=== PATIENT | male | born 1960 | race Caucasian/White ===

== ENCOUNTER → 2020-02-05 | Outpatient (CLI) | payer MEDICARE ==
[~2020-02-05] MED LIST: CATHETER FLUSH 10 ML SYR IV PRN; HOLD METFORMIN - RECEIVED CONTRAST 20 ML VIAL IV SCH; IOHEXOL 350 MG/ML 100 ML (OMNIPAQUE 350) VIAL IV ONE; NS 100 ML (IVPB) BAG IV ONE
--- NOTE | 2020-02-05 11:17 | Diagnostic Imaging Report ---
PROCEDURE: CT neck soft tissue with contrast. TECHNIQUE: Multiple contiguous axial images were obtained through the neck after the administration of contrast. Auto Exposure Controls were utilized during the CT exam to meet ALARA standards for radiation dose reduction. INDICATION: Lump in right side of throat. COMPARISON: There are no prior studies available for comparison. FINDINGS: By history, the patient has a palpable abnormality in the right neck. Just inferior to the mandibular ramus on the right, there is a fairly well-defined complex mass measuring 1.7 x 2.8 x 4.3 cm in maximum AP transverse and longitudinal dimensions. I suspect that this is a necrotic lymph node. Furthermore, there is also area of abnormal enhancement involving the base of the tongue on the right. This measures 2.5 x 2.7 x 1.9 cm. This area of abnormal enhancement appears to extend caudally to the level of the epiglottis. This mass and the necrotic suspected chronic lymph node on the right should be considered neoplastic until proven otherwise. There is no other mass or adenopathy involving the neck. The parotid and submandibular glands show no sign of an acute abnormality. The thyroid gland seems homogeneous and not enlarged. The lung apices are clear. The bone windows show no sign of a fracture or of a destructive lesion. The intracranial contents, where visualized, are unremarkable for an acute abnormality. IMPRESSION: 1. There is an enhancing mass along the base of the tongue on the right. This mass does extend caudally to the level of the epiglottis. There is also a sizable necrotic lymph node just inferior to the mandibular ramus on the right. These masses should be considered neoplastic until proven otherwise. An ENT consult would be recommended. 2. There is no other evidence for neoplastic disease. 3. There is no sign of an acute abnormality. Dictated by: Dictated on workstation # [id number]
== END ==
LOC: RAD FS 09:25
PROVIDERS: ATTEND Family Medicine
DX: R22.1 Localized swelling, mass and lump, neck (principal); R59.0 Localized enlarged lymph nodes
CPT/HCPCS: 70491

== ENCOUNTER 2020-02-23 05:43 | Outpatient (RCR) | payer MEDICARE ==
[~2020-02-23] VITALS: Ht 172 cm; Wt 96.6 kg
[2020-02-23] MEDS ORDERED: LISI1TAB46 PO (08:52)
[2020-02-23] MEDS ORDERED: CITA20TA9 PO (08:52)
[2020-02-23] MEDS ORDERED: TMSL.4C PO (08:52)
[2020-02-23] MEDS ORDERED: TERB250T16 PO (08:52)
[2020-02-23 08:56] VITALS: BP 154/99
[2020-02-23 09:28] LABS: BASOPHILS # (AUTO) 0.1 10^3/uL (0.0-0.1); BASOPHILS % (AUTO) 1 % (0-10); EOSINOPHILS # (AUTO) 0.1 10^3/uL (0.0-0.3); EOSINOPHILS % (AUTO) 3 % (0-10); HEMATOCRIT 42 % (40-54); HEMOGLOBIN 13.8 g/dL (13.3-17.7); LYMPHOCYTES # (AUTO) 1.8 10^3/uL (1.0-4.0); LYMPHOCYTES % (AUTO) 37 % (12-44); MEAN CORPUSCULAR HEMOGLOBIN 28 pg (25-34); MEAN CORPUSCULAR HGB CONC 33 g/dL (32-36); MEAN CORPUSCULAR VOLUME 85 fL (80-99); MEAN PLATELET VOLUME 11.9 fL (9.0-12.2); MONOCYTES # (AUTO) 0.4 10^3/uL (0.0-1.0); MONOCYTES % (AUTO) 9 % (0-12); NEUTROPHILS # (AUTO) 2.4 10^3/uL (1.8-7.8); NEUTROPHILS % (AUTO) 50 % (42-75); PLATELET COUNT 142 10^3/uL (130-400); WHITE BLOOD COUNT 4.8 10^3/uL (4.3-11.0)
[2020-02-23 09:41] LABS: BUN/CREATININE RATIO 9; CALCIUM 8.8 MG/DL (8.5-10.1); CARBON DIOXIDE 26 MMOL/L (21-32); CHLORIDE 105 MMOL/L (98-107); CREATININE SERUM 0.85 MG/DL (0.60-1.30); GFR ESTIMATED > 60; GLUCOSE 105 MG/DL (70-105); POTASSIUM 3.4 MMOL/L (3.6-5.0); SODIUM 137 MMOL/L (135-145)
== END 2020-02-23 10:44 | disposition home or self-care (01) ==
LOC: PREOP 05:43
PROVIDERS: ATTEND Otolaryngology Otolaryngology/Facial Plastic Surgery
DX: Z01.812 Encounter for preprocedural laboratory examination (principal); Z01.810 Encounter for preprocedural cardiovascular examination; R22.0 Localized swelling, mass and lump, head; Z20.828 Contact with and (suspected) exposure to other viral communicable diseases
CPT/HCPCS: 80048; 85025; 87081; U0002; 36415; 87635; 93005

== ENCOUNTER 2020-02-25 07:17 | Day surgery (SDC) | payer MEDICARE ==
[~2020-02-25] VITALS: Ht 172.7 cm; Wt 96.4 kg
[2020-02-25] VITALS (8 sets, daily range): BP systolic 116–149; BP diastolic 61–103
[~2020-02-25 07:17] MED LIST changes: -CATHETER FLUSH 10 ML SYR IV PRN; +CITA20TA9 PO; -HOLD METFORMIN - RECEIVED CONTRAST 20 ML VIAL IV SCH; -IOHEXOL 350 MG/ML 100 ML (OMNIPAQUE 350) VIAL IV ONE; +LISI1TAB46 PO; -NS 100 ML (IVPB) BAG IV ONE; +TERB250T16 PO; +TMSL.4C PO
[2020-02-25] MEDS: LACTATED RINGERS 1,000 ML IV PRN ×2 (07:33→10:52)
[2020-02-25] MEDS ORDERED: MIDAZOLAM 2 MG/2 ML (VERSED) VIAL IVP ONE (08:30)
--- NOTE | 2020-02-25 08:40 | Progress Note-Pre Operative ---
Pre-Operative Progress Note H&P Reviewed The H&P was reviewed, patient examined and no changes noted. Date Seen by Provider: Feb 25, 2020 Time Seen by Provider: 08:30 Date H&P Reviewed: Feb 25, 2020 Time H&P Reviewed: 08:30 Pre-Operative Diagnosis: Right Base of Tongue Mass with Neck adenopathy AVTAR DUTTON MD Feb 25, 2020 08:40
[2020-02-25] MEDS ORDERED: LIDOCAINE PF 2% 5 ML (XYLOCAINE) VIAL ONE (09:45)
[2020-02-25] MEDS ORDERED: SEVOFLURANE (ULTANE) 15 ML INHAL SOLN ONE ×3 (09:45→10:34)
[2020-02-25] MEDS ORDERED: proPOfol 200 MG/20 ML (DIPRIVAN) VIAL IV ONE (09:45)
[2020-02-25] MEDS ORDERED: ONDANSETRON 4 MG/2 ML (SDV) Z0FRAN ONE (09:45)
[2020-02-25] MEDS ORDERED: fentaNYL INJECTION 100 MCG/2 ML AMP ONE (09:45)
[2020-02-25] MEDS ORDERED: MIDAZOLAM 2 MG/2 ML (VERSED) VIAL ONE (09:45)
[2020-02-25] MEDS ORDERED: LIDOCAINE/EPI 1%-1:100,000 (XYLOCAINE) 50 ML ONE (10:03)
--- NOTE | 2020-02-25 10:19 | Progress Note-Post Operative ---
Post-Operative Progess Note Surgeon (s)/Terminal Worker (s) Surgeon AVTAR DUTTON MD Terminal Worker n/a Pre-Operative Diagnosis Right Base of Tongue Mass with Neck adenopathy Post-Operative Diagnosis same Post-Op Procedure Note Date of Procedure: Feb 25, 2020 Name of Procedure Performed: Direct Laryngosocpy with Biopsies of Right Aleksandr of Tongue Mass Description & Findings Description and Findings: n/a Anesthesia Type get Estimated Blood Loss minimal Packing none. Specimen(s) collected/removed right base of tongue biopsies AVTAR DUTTON MD Feb 25, 2020 10:19
[2020-02-25] MEDS ORDERED: HYDROcodone/APAP 5 MG/325 MG (LORTAB) TAB PO PRN (10:30)
[2020-02-25] MEDS ORDERED: ACETAMINOPHEN 325 MG TABLET PO PRN (10:30)
[2020-02-25] MEDS ORDERED: PROMETHAZINE INJ 25 MG/ML (PHENERGAN) AMP IV PRN (10:30)
[2020-02-25] MEDS ORDERED: ROCURONIUM 10 MG/ML 5 ML SYRINGE IV ONE (10:34)
[2020-02-25] MEDS ORDERED: SUCCINYLCHOLINE INJ 100 MG/5 ML SYR/VIAL ONE (10:34)
[2020-02-25] MEDS ORDERED: GLYCOPYRROLATE 0.2 MG/ML (ROBINUL) 2 ML VIAL ONE (10:38)
[2020-02-25] MEDS ORDERED: NEOSTIGMINE 3 MG/3 ML VIAL ONE (10:38)
--- NOTE | 2020-02-25 11:09 | Anesthesia-General Post-Op ---
General Patient Condition Mental Status/LOC: Same as Preop Cardiovascular: Satisfactory Nausea/Vomiting: Absent Respiratory: Satisfactory Pain: Controlled Complications: Absent Post Op Complications Complications None Follow Up Care/Instructions Patient Instructions None needed. Anesthesia/Patient Condition Patient Condition Patient is doing well, no complaints, stable vital signs, no apparent adverse anesthesia problems. No complications reported per nursing. RAYMOND JOSE CRNA Feb 25, 2020 11:09
[2020-02-25] MEDS ORDERED: VISCOUS XYLOCAINE PO (11:44)
[2020-02-25] MEDS ORDERED: HYDR15SO8 PO (11:44)
== END 2020-02-25 12:15 | disposition home or self-care (01) ==
LOC: SDC 07:17
PROVIDERS: ATTEND Otolaryngology Otolaryngology/Facial Plastic Surgery
DX: C01 Malignant neoplasm of base of tongue (principal); I10 Essential (primary) hypertension; J45.909 Unspecified asthma, uncomplicated; Z79.899 Other long term (current) drug therapy
CPT/HCPCS: 88305; 88331; 88341; 88342

== ENCOUNTER → 2020-03-01 | Outpatient (CLI) | payer MEDICARE ==
[~2020-03-01] MED LIST changes: +CATHETER FLUSH 10 ML SYR IV PRN; +HOLD METFORMIN - RECEIVED CONTRAST 20 ML VIAL IV SCH; +HYDR15SO8 PO; +IOHEXOL 350 MG/ML 100 ML (OMNIPAQUE 350) VIAL IV ONE; +NS 100 ML (IVPB) BAG IV ONE; +VISCOUS XYLOCAINE PO
--- NOTE | 2020-03-01 16:14 | Diagnostic Imaging Report ---
INDICATION: Right-sided base of tongue mass, initial staging. TECHNIQUE: The serum blood glucose level at the time of injection was 96 mg/dL. The patient was administered 14.9 mCi of F-18 FDG in the right hand and PET imaging was performed from the top of the skull to the mid thighs. A noncontrast CT was also performed for attenuation correction and anatomic correlation. COMPARISON: No prior PET/CT studies are available for comparison. Correlation is made with the recent CT soft tissue neck study from 02/05/2020. FINDINGS: There is symmetric activity throughout the brain. A hypermetabolic mass at the base of the tongue on the right side is noted with an SUV max of 11.7. This corresponds to the enhancing mass noted on the recent CT. There is also a hypermetabolic lymph node in the right jugulodigastric location measuring 2.7 cm. This demonstrates and SUV max of 13.8. No other hypermetabolic lymph nodes are identified. The left neck is unremarkable. The mediastinum and zohreh are unremarkable. No pulmonary parenchymal hypermetabolism is seen. The abdomen and pelvis demonstrate physiologic activity throughout the GI and tracts. IMPRESSION: Hypermetabolic base of tongue mass on the right side as well as hypermetabolic metastatic right neck lymph node, as described. No other suspicious regions of hypermetabolism are identified. Dictated by: Dictated on workstation # [id number]
--- NOTE | 2020-03-01 18:02 | Diagnostic Imaging Report ---
PROCEDURE: CT chest with contrast only. TECHNIQUE: Multiple contiguous axial images were obtained through the chest after administration of intravenous contrast. Auto Exposure Controls were utilized during the CT exam to meet ALARA standards for radiation dose reduction. INDICATION: Right base of tongue mass. COMPARISON: PET/CT from the same date. FINDINGS: No significant adenopathy within the chest. No aneurysmal dilatation of the thoracic aorta. Mild scattered vascular calcifications. The heart is within normal limits in size. A few small pericardial calcifications are present. No significant pericardial effusion. No pleural effusion. No pneumothorax. Mild secretions within the trachea. 0.3 cm left upper lobe pulmonary nodule, axial image 61. The lungs otherwise appear clear. Splenule is is present medial to the spleen. The visualized upper abdomen is otherwise unremarkable. Mild scattered osseous degenerative changes without acute osseous abnormality. IMPRESSION: No acute abnormality. 0.3 cm indeterminate left upper lobe pulmonary nodule. Given small size, this is below the size threshold of PET. Therefore, CT follow-up is indicated within the next 6 to 12 months. Dictated by: Dictated on workstation # [id number]
== END ==
LOC: RAD 12:00
PROVIDERS: ATTEND Otolaryngology Otolaryngology/Facial Plastic Surgery
DX: K14.8 Other diseases of tongue (principal); R91.1 Solitary pulmonary nodule
CPT/HCPCS: 71260; 78815; A9552

== ENCOUNTER 2020-03-31 05:44 | Outpatient (RCR) | payer MEDICARE ==
[~2020-03-31] VITALS: Ht 172.7 cm; Wt 96.4 kg
[~2020-03-31 05:44] MED LIST changes: -CATHETER FLUSH 10 ML SYR IV PRN; -HOLD METFORMIN - RECEIVED CONTRAST 20 ML VIAL IV SCH; -IOHEXOL 350 MG/ML 100 ML (OMNIPAQUE 350) VIAL IV ONE; -NS 100 ML (IVPB) BAG IV ONE
== END 2020-03-31 16:18 | disposition home or self-care (01) ==
LOC: PREOP 05:44
PROVIDERS: ATTEND Surgery
DX: Z01.818 Encounter for other preprocedural examination (principal)

== ENCOUNTER 2020-04-21 05:57 | Day surgery (SDC) | payer MEDICARE ==
[~2020-04-21] VITALS: Ht 172.7 cm; Wt 96.4 kg
[2020-04-21] VITALS (10 sets, daily range): BP systolic 138–150; BP diastolic 88–99
[2020-04-21] MEDS ORDERED: ceFAZolin 2 GM IV Premixed 50 ML IV ONE (06:15)
[2020-04-21] MEDS ORDERED: HEParin (CENTRAL IV FLUSH) 500 UNIT/5 ML SYR ONE (07:18)
[2020-04-21] MEDS ORDERED: 0.9% SODIUM CHLORIDE PF INJ 20 ML VIAL ONE (07:19)
[2020-04-21] MEDS ORDERED: LIDOCAINE/EPI 1%-1:100,000 (XYLOCAINE) 50 ML ONE (07:19)
[2020-04-21] MEDS ORDERED: SEVOFLURANE (ULTANE) 15 ML INHAL SOLN ONE ×5 (07:28→09:07)
[2020-04-21] MEDS ORDERED: ONDANSETRON 4 MG/2 ML (SDV) Z0FRAN ONE (07:28)
[2020-04-21] MEDS ORDERED: LIDOCAINE JELLY 2% 6 ML SYRINGE ONE (07:28)
[2020-04-21] MEDS ORDERED: fentaNYL INJECTION 100 MCG/2 ML AMP ONE (07:28)
[2020-04-21] MEDS ORDERED: proPOfol 200 MG/20 ML (DIPRIVAN) VIAL IV ONE ×2 (07:28→09:08)
[2020-04-21] MEDS ORDERED: MIDAZOLAM 2 MG/2 ML (VERSED) VIAL ONE (07:28)
[2020-04-21] MEDS ORDERED: ROCURONIUM 10 MG/ML 5 ML SYRINGE IV ONE (07:28)
[2020-04-21] MEDS ORDERED: LACTATED RINGERS 1,000 ML IV PRN (07:45)
--- NOTE | 2020-04-21 08:00 | Progress Note-Pre Operative ---
Pre-Operative Progress Note H&P Reviewed The H&P was reviewed, patient examined and no changes noted. Date Seen by Provider: Apr 21, 2020 Time Seen by Provider: 08:00 Date H&P Reviewed: Apr 21, 2020 Time H&P Reviewed: 08:00 Pre-Operative Diagnosis: squamous cell carcinoma tongue LILY DIETRICH DO Apr 21, 2020 08:00
[2020-04-21] MEDS ORDERED: HYDROmorphone 2 MG/ML VIAL (DILAUDID) ONE (08:41)
--- NOTE | 2020-04-21 09:04 | Diagnostic Imaging Report ---
INDICATION: Undergoing port placement. TECHNIQUE: Single intraprocedural images right upper chest FINDINGS/ IMPRESSION: The hospital radiology department provided fluoroscopic imaging in support of an interventional procedure performed by Dr Boone. A radiologist was not involved in the procedure. Please reference the operating provider's procedure note. Fluoroscopy Time: 35.6 seconds Single image procedure image demonstrates a right subclavian Lhojfw-g-Otop catheter present with tip over the paramediastinal region. Endotracheal tube is also present extending over the expected location of the trachea. Dictated by: Dictated on workstation # [id number]
[2020-04-21] MEDS ORDERED: PHENYLEPHRINE 100 MCG/ML 10 ML (ANESTHESIA) SYR ONE (09:08)
[2020-04-21] MEDS ORDERED: ONDANSETRON 4 MG/2 ML (SDV) Z0FRAN IVP PRN (09:30)
[2020-04-21] MEDS ORDERED: morphine INJ 10 MG/ML 1ML (SYR OR VIAL) IVP ONE (09:30)
[2020-04-21] MEDS ORDERED: MEPERIDINE (DEMEROL) INJ 50 MG/ML IVP ONE (09:30)
--- NOTE | 2020-04-21 09:30 | Anesthesia-General Post-Op ---
General Patient Condition Mental Status/LOC: Same as Preop Cardiovascular: Satisfactory Nausea/Vomiting: Absent Respiratory: Satisfactory Pain: Controlled Complications: Absent Post Op Complications Complications None Follow Up Care/Instructions Patient Instructions None needed. Anesthesia/Patient Condition Patient Condition Patient is doing well, no complaints, stable vital signs, no apparent adverse anesthesia problems. No complications reported per nursing. RONALD BRIDGES CRNA Apr 21, 2020 09:30
[2020-04-21] MEDS ORDERED: ACHD5005 PO (09:31)
--- NOTE | 2020-04-21 09:32 | Discharge Inst-Simple/Standard ---
Discharge Inst-Standard Discharge Medications New, Converted or Re-Newed RX: RX on Chart Patient Instructions/Follow Up Plan of Care/Instructions/FU: 2 weeks Paolo Activity as Tolerated: No Discharge Diet: Regular Diet LILY DIETRICH DO Apr 21, 2020 09:31
--- NOTE | 2020-04-21 09:33 | Discharge Inst-Simple/Standard ---
Discharge Inst-Standard Discharge Medications New, Converted or Re-Newed RX: RX on Chart Patient Instructions/Follow Up Plan of Care/Instructions/FU: 2 weeks Paolo Activity as Tolerated: No Discharge Diet: Regular Diet Other Inst to Patient Follow up Appt: Make appointment for 2 week. Instructions: No lifting greater than 10 pounds. No strenuous activity. May shower in 24 hours, no tub bath or soaking. Use incentive spirometer at home as directed. No Smoking Skin/Wound Care: You have special glue over your incision that will fall off on it's own. Rotate peg tube 2-3 times per day to change pressure that is on skin. Symptoms to Report: Appetite Changes, Extremity Discoloration, Numbness/Tingling, Swelling Increased, Bleeding Excessive, Eyesight Changes, Pain Increased, Urine Color Change, Constipation(Persistent), Fever over 101 degree F, Pain/Pressure in chest, Urinating Difficulty, Cough Up/Vomit Blood, Heart Beat Irreg/Pounding, Pain/Pressure in jaw, Vaginal Bleeding Increase, Cramps in feet or legs, Lightheadedness, Pain/Pressure in shoulder, Diarrhea(Persistent), Memory Changes Suddenly, Questions/Concerns, Weight gain consecutive days, Dizziness/Fainting, Nausea/Vomiting, Shortness of Breath, Weight gain over 2 pounds If questions or concerns contact your physician Or seek help at emergency department. LILY DIETRICH DO Apr 21, 2020 09:33
--- NOTE | 2020-04-21 09:40 | Progress Note-Post Operative ---
Post-Operative Progess Note Surgeon (s)/Grid Caster (s) Surgeon HOLLIE LOAIZA DO Grid Caster: Paolo Pre-Operative Diagnosis squamous cell carcinoma tongue Post-Operative Diagnosis same Procedure & Operative Findings Date of Procedure 04/21/20 Procedure Performed/Findings PEG tube placement Anesthesia Type GET Estimated Blood Loss Estimated blood loss (mL): scant Specimens/Packing Specimens Removed none HOLLIE LOAIZA DO Apr 21, 2020 09:40
--- NOTE | 2020-04-21 10:07 | Diagnostic Imaging Report ---
INDICATION: Catheter placement. Single AP view of the chest is obtained. There is no previous study for comparison. Heart size and pulmonary vascularity are within normal limits. There is no pneumothorax or consolidation. There is mild elevation of the right hemidiaphragm. Right anterior chest wall port is in place with catheter tip projecting over the mid superior vena cava. There is no pneumothorax or evidence of complication. IMPRESSION: No acute abnormality or complication related to right anterior chest wall port placement. Dictated by: Dictated on workstation # [id number]
--- NOTE | 2020-04-21 10:11 | Progress Note-Post Operative ---
Post-Operative Progess Note Surgeon (s)/Cardiac Exercise Specialist (s) Surgeon LILY DIETRICH DO Cardiac Exercise Specialist: Delman-Gastrostomy tube placement Pre-Operative Diagnosis squamous cell carcinoma tongue Post-Operative Diagnosis same Procedure & Operative Findings Date of Procedure 04/21/20 Procedure Performed/Findings right subclavian vein port placement, egd for Gastrostomy tube Anesthesia Type general Estimated Blood Loss Estimated blood loss (mL): scant Specimens/Packing Specimens Removed na LILY DIETRICH DO Apr 21, 2020 10:11
[2020-04-21] MEDS ORDERED: LABETALOL HCL 20 MG/4 ML VIAL ONE (10:29)
--- NOTE | 2020-04-21 12:41 | OPERATIVE REPORT ---
DATE OF SERVICE: 04/21/2020 PREOPERATIVE DIAGNOSIS: Squamous cell carcinoma of the tongue. POSTOPERATIVE DIAGNOSIS: Squamous cell carcinoma of the tongue. PROCEDURE: Right subclavian vein port placement and esophagogastroduodenoscopy for gastrostomy tube placement. SURGEON: Lily Boone DO GAMBLING FLOOR SUPERVISOR: Dr. Rudd. Please see his dictation for gastrostomy tube placement. ESTIMATED BLOOD LOSS: Scant. COMPLICATIONS: None. INDICATIONS: The patient is a 60-year-old male with squamous cell carcinoma, needing a port and gastrostomy tube. The patient understands risks and benefits of procedure and wanted to proceed with procedure. Consent was signed in the chart. DESCRIPTION OF PROCEDURE: The patient was taken to the operating suite, was prepped and draped in usual sterile fashion for a right subclavian port placement. A timeout was performed. Using micro access needle, the right subclavian vein was accessed, dark nonpulsatile blood was withdrawn. Micro access wire was inserted and the needle was removed. Fluoroscopy assured proper placement. An 11 blade scalpel was used to make a small skin incision and dilator was advanced over the wire and the wire was removed. The normal port wire was inserted and fluoroscopy assured proper placement. The dilator sheath was then removed. The wire was secured. A pocket was created over the right chest. A dilator sheath was then advanced over the wire under fluoroscopy and the wire was removed. The Groshong catheter was inserted through the sheath and the sheath was then removed. The Groshong wire was removed. The catheter was cut to length using fluoroscopy, it was attached to the port and placed within the pocket. Port was then accessed without difficulty, joaquim blood without difficulty and flushed with saline and then with heparin. Subcutaneous tissues were then reapproximated using 3-0 Vicryl. Skin was then closed using Skin Affix. EGD was then performed for gastrostomy tube placement. The scope was inserted in mouth, down the esophagus, stomach and into the duodenum without difficulty. There were no polyps, masses or ulcerations within the duodenum. Scope was slowly retracted back into the stomach where it was further insufflated. Some slight changes of reactive gastropathy was present. The ballottable portion of the stomach was able to be visualized. Once the Angiocath needle came in, the catheter was then snared. The wire was inserted and the wire was then snared and brought out through the mouth. The gastrostomy tube was then secured to the wire and then brought out through the skin incision. The scope was then reinserted in mouth, down the esophagus into the stomach demonstrating the gastrostomy tube in good position. Please see Dr. Rudd's dictation for his portion of the procedure. Scope was then slowly retracted back until completely removed. The patient tolerated procedure well without any complications, taken to recovery room in stable condition. Chest x-ray pending. Job ID: [id number] DocumentID: [id number] Dictated Date: 04/21/2020 10:15:13 Police Liaison Officer Date: 04/21/2020 12:40:31 Dictated By: LILY BOONE DO
--- NOTE | 2020-04-21 13:14 | OPERATIVE REPORT ---
DATE OF SERVICE: PREOPERATIVE DIAGNOSIS: Squamous cell cancer of the tongue. POSTOPERATIVE DIAGNOSIS: Squamous cell cancer of the tongue. PROCEDURE: PEG tube placement. SURGEON: Mario Rudd DO CLEAN ROOM OPERATOR: Los Boone DO. ANESTHESIA: General endotracheal tube. SPECIMENS: None. BLOOD LOSS: None. FLUIDS: Per anesthesia. POSTOPERATIVE CONDITION: Stable. INDICATION FOR PROCEDURE: The patient is a 60-year-old male who has a history of squamous cell carcinoma of tongue and needs a PEG because he will get chemotherapy radiation and he will not be able to eat. FINDINGS: The patient had a PEG tube placed without difficulty. PROCEDURE NOTE: After informed consent was obtained, the patient was already in the OR, had a port placed by Dr. Boone. We then elected to do the PEG. Dr. Boone did the EGD portion. Once he was in and dilated the stomach, I then palpated the stomach, could see the me pushing in on the scope. At this point, then sterilely prepped and draped this area and then infiltrated the left upper quadrant with local lidocaine, made a small stab incision with #11 blade and then advanced the finder needle in an upward little bit and then able to wash it come into the stomach. Once it was in the stomach, it was then grasped with a lasso, removed this needle and then through the catheter, placed another wire, able to grasp this wire with a needle and then Dr. Boone pulled this out. I passed him the PEG tube and then I attached it to the lasso and I pulled this in through this mouth, down the esophagus into the stomach, sat nicely at the skin. It was about 6 to 7 cm, able to spin, did not look it was pulling. At this point, then placed some Povidone gel around this and then placed the locking mechanism and the closure for the PEG tube, pushed these down, put a small 2 x 2 drain dressing and then this was held in place with the locking mechanism, clamped tube, cut off the distal portion of the tube and then attached the opening to be able to give the patient feedings through this tube. Area was then cleaned and dried, dressing placed. The patient tolerated the procedure. Sponge, instrument and needle count correct at the end of the case. Job ID: [id number] DocumentID: [id number] Dictated Date: 04/21/2020 09:43:25 [place] Administrator Date: 04/21/2020 12:29:48 Dictated By: DO TEVIN GARNETT
== END 2020-04-21 11:30 | disposition home or self-care (01) ==
LOC: SDC 05:57
PROVIDERS: ATTEND Surgery
DX: C01 Malignant neoplasm of base of tongue (principal); J44.9 Chronic obstructive pulmonary disease, unspecified; I87.2 Venous insufficiency (chronic) (peripheral); I10 Essential (primary) hypertension; F32.9 Major depressive disorder, single episode, unspecified; M06.9 Rheumatoid arthritis, unspecified; F41.9 Anxiety disorder, unspecified; Z79.899 Other long term (current) drug therapy; Z79.891 Long term (current) use of opiate analgesic; Z87.891 Personal history of nicotine dependence; Z98.890 Other specified postprocedural states; E66.9 Obesity, unspecified; Z68.32 Body mass index [BMI] 32.0-32.9, adult; Z80.8 Family history of malignant neoplasm of other organs or systems
CPT/HCPCS: 36561; 43246; 71045; 76000; 87081; C1788

== ENCOUNTER → 2020-04-26 | Outpatient (CLI) | payer MEDICARE ==
[~2020-04-26] MED LIST changes: +ACHD5005 PO; +CATHETER FLUSH 10 ML SYR IV PRN; +HOLD METFORMIN - RECEIVED CONTRAST 20 ML VIAL IV SCH; +IOHEXOL 350 MG/ML 100 ML (OMNIPAQUE 350) VIAL IV ONE; +NS 100 ML (IVPB) BAG IV ONE
--- NOTE | 2020-04-26 12:59 | Diagnostic Imaging Report ---
PROCEDURE: CT abdomen with contrast only. TECHNIQUE: Multiple contiguous axial images were obtained through the abdomen after the administration of intravenous contrast. Auto Exposure Controls were utilized during the CT exam to meet ALARA standards for radiation dose reduction. A mixture of Gastrografin and water was also introduced to the patient's gastrostomy tube. INDICATION: Malfunctioning PEG tube The PET/CT exam performed on 03/01/2020 failed to show any abnormality of the upper abdomen. Reportedly the patient has had a gastrostomy tube inserted on 04/22/20. On this study the gastrostomy tube appears to be well-positioned with bulb just beyond the gastric wall and within the lumen of the stomach. The stomach itself however is filled with multiple low density defects. These defects range in size from a few millimeters to 2.5 cm. It is possible these could be related to particulate matter. Small hematomas would be unusual but should also be considered. It would be unlikely that these are neoplastic in nature either leiomyomas or gastric carcinomas. However, there was generalized hypermetabolic activity associated with the stomach on the recent PET/CT exam. The contrast within the stomach does extend into the small bowel and there is no evidence for a gastric outlet obstruction. There is no acute abnormality of the abdomen or pelvis noted otherwise. The lung bases remain clear. The bone windows are unremarkable for a fracture or for a destructive lesion. IMPRESSION: 1. There is no acute abnormality of the abdomen or pelvis noted otherwise.. In the interval since the recent PET/CT exam of 03/01/2020 a gastrostomy tube has been inserted. The tube seems to be in good position. However there are numerous defects amidst the oral contrast within the stomach. These defects are of uncertain etiology 2. There is no acute abnormality of the abdomen and pelvis noted otherwise. 3. These results were discussed with Dr. Mario Rudd. Dictated by: Dictated on workstation # [id number]
== END ==
LOC: RAD 10:12
PROVIDERS: ATTEND Surgery
DX: K94.23 Gastrostomy malfunction (principal)
CPT/HCPCS: 74160

== ENCOUNTER → 2020-05-23 | Outpatient (CLI) | payer MEDICARE ==
[~2020-05-23] MED LIST changes: -CATHETER FLUSH 10 ML SYR IV PRN; -HOLD METFORMIN - RECEIVED CONTRAST 20 ML VIAL IV SCH; -IOHEXOL 350 MG/ML 100 ML (OMNIPAQUE 350) VIAL IV ONE; -NS 100 ML (IVPB) BAG IV ONE
--- NOTE | 2020-05-23 12:04 | Diagnostic Imaging Report ---
INDICATION: WHEEZING COMPARISON: 04/21/2020 FINDINGS: Frontal and lateral views of the chest demonstrate normal heart size and pulmonary vascularity. The lungs are clear. There are no signs of infiltrate, pleural effusions or pneumothoraces. The visualized osseous structures show no acute abnormalities. Central tip of the right subclavian Port-A-Cath is now identified extending into the lower right neck, presumably within the right internal jugular vein. IMPRESSION: 1. No acute process. No signs of infiltrates, effusions or pneumothoraces. 2. Right subclavian Port-A-Cath central tip now terminates within the right internal jugular vein. Dictated by: Dictated on workstation # [id number]
== END ==
LOC: RAD 10:58
PROVIDERS: ATTEND Nurse Practitioner Adult Health
DX: R06.2 Wheezing (principal)
CPT/HCPCS: 71046

== ENCOUNTER 2020-05-31 10:55 | Day surgery (SDC) | payer MEDICARE, OTHER ==
[~2020-05-31] VITALS: Ht 172 cm; Wt 92.0 kg
[2020-05-31] VITALS (9 sets, daily range): BP systolic 132–159; BP diastolic 83–97
[~2020-05-31 10:55] MED LIST changes: +HEParin (CATH LAB) 2,000 ML IV ONE; +LIDOCAINE 1% INJ 20 ML 20 ML VIAL ONE; +NS IV 1000 ML 1,000 ML ONE
[2020-05-31] MEDS ORDERED: NS IV 1000 ML 1,000 ML IV SCH ×2 (11:00→16:30)
[2020-05-31] MEDS ORDERED: HYDR118S10 PO (11:23)
[2020-05-31] MEDS ORDERED: MAGIC MOUTHWASH PO (11:23)
--- NOTE | 2020-05-31 13:42 | Cardiology History & Physical ---
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 Port-a-cath and PEG tube were placed by Dr. Boone on 04/21/20. Pt has been seeing Dr. Lamb for radiation and cisplatin chemotherapy, last chemotherapy treatment was yesterday and last radiation was this morning. He has hepatitis C and HTN, for which he takes Lisinopril 20 mg-HCTZ 12.5 mg, but is not on any blood thinners. Prior hx of chewing tobacco and 32 pack/yr smoker, but quit 10 years ago. Previously drank 5 beers per day, but has not had a drink since starting his cancer treatment. Pt denies any complaints at this time. PMH-Cardiology Immunizations Up To Date Date of Influenza Vaccine: Feb 02, 2020 Seasonal Allergies Seasonal Allergies: Yes (MILD) Surgeries Yes (BACK-LUMBAR, tongue bx, PEG tube placement, port-a-cath placement) Respiratory Yes (ASTHMA CHILD) Cardiovascular Yes Hypertension Neurological Yes Headaches /Migraines Reproductive System Sexually Transmitted Disease: No HIV/AIDS: No Genitourinary Yes Prostate Problems Gastrointestinal Yes (HX HEPATITIS B) Hepatitis (Hepatitis C virus) Musculoskeletal Yes (HANDS) Arthritis, Chronic Back Pain Endocrine No HEENT Yes (GLASSES) Loss of Vision: Denies Hearing Impairment: Denies Cancer Yes (stage III SCC of tongue) Type of Treatment: Chemotherapy, Radiation Psychosocial Yes Anxiety Integumentary Yes (VERY DRY SKIN) Blood Transfusions No Adverse Rxn to Transfusion: No (HAS HAD BLOOD WITH NO REACTION) Social History Patient Social History Marrital Status: Employed/Student: employed Smoking: Former smoker (chewed tobacco and smoked for 32 pack/yrs; quit 10 years ago) Alcohol Use?: Yes (5 beers per day until starting treatment 1 month ago) Family Hx Significant Family History: Heart Disease (on mother's side) Other Noncontributory to his current condition ROS-Cardiology Review of Systems General: No Chills, No Night Sweats, No Fatigue, No Malaise, No Appetite, No Other Pulmonary: No Dyspnea, No Pleuritic Chest Pain Cardiovascular: No: Chest Pain, Palpitations, Paroxysmal Noc. Dyspnea, Edema, Lt Headedness Gastrointestinal: No: Nausea, Vomiting, Abdominal Pain, Diarrhea, Constipation, Melena, Hematochezia, Other Home Medications & Allergies Allergies: Coded Allergies: No Known Drug Allergies (Unverified , 02/23/20) Home Medication List Reviewed: Yes Exam-Cardiology Vital Signs Vital Signs Date Time Temp Pulse Resp B/P (MAP) Pulse Ox O2 Delivery O2 Flow Rate FiO2 05/31/20 11:11 36.0 92 16 159/97 (117) 95 Room Air Exam General Appearance: Alert, Oriented X3, Cooperative, No Acute Distress HEENT: Atraumatic, PERRLA, EOMI, Mucous Memb Moist/Venturia, Other (edentulous; port-a-cath in place on right) Respiratory: Clear to Auscultation, Normal Air Movement Cardiovascular: Regular Rate, Normal S1, Normal S2, No Murmurs Abdominal: Other (PEG tube in place) Extremities: No Cyanosis, No Edema, Normal Pulses, No Tenderness/Swelling Skin: No Rashes, No Significant Lesion Neuro: Normal Speech Psych/Mental Status: Mental Status NL, Mood NL Results Labs Labs Laboratory Tests 05/31/20 14:31: White Blood Count 1.8L, Red Blood Count 3.39L, Hemoglobin 9.4L, Hematocrit 30L, Mean Corpuscular Volume 87, Mean Corpuscular Hemoglobin 28, Mean Corpuscular Hemoglobin Concent 32, Red Cell Distribution Width 15.7H, Platelet Count 74L, Mean Platelet Volume 12.3H, Prothrombin Time 14.3, INR Comment 1.1, Activated Partial Thromboplast Time 25, Sodium Level 138, Potassium Level 4.8, Chloride Level 110H, Carbon Dioxide Level 23, Anion Gap 5, Blood Urea Nitrogen 13, Creatinine 0.62, Estimat Glomerular Filtration Rate > 60, BUN/Creatinine Ratio 21, Glucose Level 77, Calcium Level 8.0L, Corrected Calcium 9.2, Total Bilirubin 0.4, Aspartate Amino Transf (AST/SGOT) 45H, Alanine Aminotransferase (ALT/SGPT) 32, Alkaline Phosphatase 69, Total Protein 5.9L, Albumin 2.5L A/P-Cardiology Admission Diagnosis Stage III SCC of tongue HTN hepatitis C port-a-cath malplacement Admission Status: Observation Assessment/Plan Stage III SCC of tongue, treated with cisplatin and radiation by Dr. Lamb HTN, maintained on Lisinopril 20 mg-HCTZ 12.5 mg hepatitis C, untreated, plans to seek treatment after cancer treatment Right subclavian port-a-cath malplacement, plan to reposition into SVC This is Dr. Parekh, have seen and evaluated the patient with the medical student, performed physical examination, agree with the current note Patient is scheduled for repositioning of Port-A-Cath in the right subclavian vein ZEUS STEELE MED STUDENT May 31, 2020 1:42 pm ROHAN PAREKH MD May 31, 2020 2:22 pm
--- NOTE | 2020-05-31 14:16 | Cardiac Procedure Note-CS/ASA ---
Pre-Procedure Note Pre-Op Procedure Note H&P Reviewed The H&P was reviewed, patient examined and no changes noted. Date H&P Reviewed: May 31, 2020 Time H&P Reviewed: 14:16 Conscious Sedation Pre-Proced Time 14:16 ASA Score 3 For ASA 3 and 4: Consider anesthesia and medical clearance. Also, for patients with a history of failed moderate sedation consider anesthesia. Airway Lungs Heart ASA score ASA 1: a normal healthy patient ASA 2: a patient with a mild systemic disease (mid diabetes, controlled hypertension, obesity x ASA 3: a patient with a severe systemic disease that limits activity (angina, COPD, prior Myocardial infarction) ASA 4: a patient with an incapacitating disease that is a constant threat to life (CHF, renal failure) ASA 5: a moribund patient not expected to survive 24 hrs. (ruptured aneurysm) ASA 6: a declared brain- patient whose organs are being harvested. For emergent operations, add the letter E after the classification Mallampati Classification Grade 3 Sedation Plan Analgesia, Amnesia, Plan communicated to team members, Discussed options with patient/fam, Discussed risks with patient/fam The patient is an appropriate candidate to undergo the planned procedure, sedation, and anesthesia. The patient immediately re-assessed prior to indication. ROHAN GAUTHIER MD May 31, 2020 14:16
[2020-05-31 14:38] LABS: HEMOGLOBIN 9.4 g/dL (13.3-17.7); MEAN PLATELET VOLUME 12.3 fL (9.0-12.2); WHITE BLOOD COUNT 1.8 10^3/uL (4.3-11.0)
[2020-05-31 14:49] LABS: INR 1.1 (0.8-1.4); PROTHROMBIN TIME PATIENT 14.3 SEC (12.2-14.7)
[2020-05-31 14:56] LABS: ALANINE AMINOTRANSFERASE 32 U/L (0-55); ALBUMIN 2.5 GM/DL (3.2-4.5); ALKALINE PHOSPHATASE 69 U/L (40-136); BILIRUBIN,TOTAL 0.4 MG/DL (0.1-1.0); BUN/CREATININE RATIO 21; CARBON DIOXIDE 23 MMOL/L (21-32); CHLORIDE 110 MMOL/L (98-107); CREATININE SERUM 0.62 MG/DL (0.60-1.30); GFR ESTIMATED > 60; GLUCOSE 77 MG/DL (70-105); POTASSIUM 4.8 MMOL/L (3.6-5.0); SODIUM 138 MMOL/L (135-145); TOTAL PROTEIN 5.9 GM/DL (6.4-8.2)
[2020-05-31] MEDS ORDERED: fentaNYL INJ 100 MCG/2 ML AMP ONE (15:30)
[2020-05-31] MEDS ORDERED: MIDAZOLAM 5 MG/5 ML (VERSED) VIAL ONE (15:30)
--- NOTE | 2020-05-31 16:19 | Cardiology Post Procedure Note ---
Post-Procedure Note Physician (s)/Sports Announcer (s) Physician ROHAN GAUTHIER MD Pre-Procedure Diagnosis Pre-Procedure Diagnosis: Malpositioning of right subclavian port Post-Procedure Note Procedure Start Date: May 31, 2020 Name of Procedure: Fluoroscopy Right venous central line placement Repositioning of the port Findings/Procedure Note Procedure note 60 years old gentleman with history of squamous cell carcinoma, has right subclavian port, it was reported to be malpositioned and moved migrated upward in the carotid vein. I was called for evaluation. Patient was brought to the cardiac catheterization laboratory, conscious sedation achieved using Versed and fentanyl. Local anesthesia applied. 6 German sheath was placed in the right femoral vein then using fluoroscopy I advanced FIR diagnostic catheter over a J-wire up through the inferior vena cava to the right atrium and then to the superior vena cava and the right subclavian vein after multiple manipulation I was able to wrap the Shahnaz right catheter around the port and pulled down I was able to retracted slowly then after multiple attempts I was able to pull it down to the superior vena cava. Sheath was removed and manual pressure applied no complication noted Conclusion Successful repositioning of port to the superior vena cava Central line placement in the right femoral vein then removal at the end of the procedure Fluoroscopy of the chest and neck Anesthesia Type: Conscious Sedation Estimated blood loss (mL): 15 ml Contrast Amount: 0 ml Post-Procedure Diagnosis Post-operative diagnosis: Squamous cell carcinoma Hepatitis C ROHAN GAUTHIER MD May 31, 2020 4:19 pm
[2020-05-31] MEDS ORDERED: PATIENT MAY USE OWN MEDS, ALL PO SCH (16:30)
== END 2020-05-31 18:35 | disposition home or self-care (01) ==
LOC: CATH 10:55
PROVIDERS: ATTEND Internal Medicine Cardiovascular Disease
DX: T82.42XA Displacement of vascular dialysis catheter, initial encounter (principal); C02.9 Malignant neoplasm of tongue, unspecified; B19.20 Unspecified viral hepatitis C without hepatic coma; I10 Essential (primary) hypertension; J45.909 Unspecified asthma, uncomplicated; G43.909 Migraine, unspecified, not intractable, without status migrainosus; G89.29 Other chronic pain; M54.9 Dorsalgia, unspecified; F41.9 Anxiety disorder, unspecified; M19.90 Unspecified osteoarthritis, unspecified site; Z79.899 Other long term (current) drug therapy; Z92.21 Personal history of antineoplastic chemotherapy; Z92.3 Personal history of irradiation; Z87.891 Personal history of nicotine dependence
CPT/HCPCS: 36597; 80053; 85027; 85610; 85730; C1894; 36415

== ENCOUNTER 2020-06-10 08:43 | Outpatient (RCR) | payer MEDICARE, OTHER ==
[2020-03-14 09:57] LABS: BASOPHILS # (AUTO) 0.1 10^3/uL (0.0-0.1); BASOPHILS % (AUTO) 1 % (0-10); EOSINOPHILS # (AUTO) 0.2 10^3/uL (0.0-0.3); EOSINOPHILS % (AUTO) 4 % (0-10); HEMATOCRIT 45 % (40-54); HEMOGLOBIN 14.8 g/dL (13.3-17.7); LYMPHOCYTES # (AUTO) 1.6 10^3/uL (1.0-4.0); LYMPHOCYTES % (AUTO) 39 % (12-44); MEAN CORPUSCULAR HEMOGLOBIN 28 pg (25-34); MEAN CORPUSCULAR HGB CONC 33 g/dL (32-36); MEAN CORPUSCULAR VOLUME 87 fL (80-99); MEAN PLATELET VOLUME 11.4 fL (9.0-12.2); MONOCYTES # (AUTO) 0.4 10^3/uL (0.0-1.0); MONOCYTES % (AUTO) 11 % (0-12); NEUTROPHILS # (AUTO) 1.8 10^3/uL (1.8-7.8); NEUTROPHILS % (AUTO) 44 % (42-75); PLATELET COUNT 146 10^3/uL (130-400); WHITE BLOOD COUNT 4.2 10^3/uL (4.3-11.0)
[2020-03-14 10:18] LABS: ALANINE AMINOTRANSFERASE 52 U/L (0-55); ALBUMIN 3.5 GM/DL (3.2-4.5); ALKALINE PHOSPHATASE 56 U/L (40-136); BILIRUBIN,TOTAL 0.5 MG/DL (0.1-1.0); BUN/CREATININE RATIO 9; CALCIUM 9.1 MG/DL (8.5-10.1); CARBON DIOXIDE 20 MMOL/L (21-32); CHLORIDE 107 MMOL/L (98-107); CREATININE SERUM 0.85 MG/DL (0.60-1.30); GFR ESTIMATED > 60; GLUCOSE 94 MG/DL (70-105); POTASSIUM 3.7 MMOL/L (3.6-5.0); SODIUM 137 MMOL/L (135-145); TOTAL PROTEIN 8.1 GM/DL (6.4-8.2)
[2020-04-25 13:03] LABS: MEAN CORPUSCULAR HEMOGLOBIN 28 pg (25-34); MEAN CORPUSCULAR HGB CONC 32 g/dL (32-36)
[2020-04-25 13:05] LABS: BASOPHILS % (AUTO) 1 % (0-10); EOSINOPHILS % (AUTO) 1 % (0-10); HEMATOCRIT 41 % (40-54); HEMOGLOBIN 13.3 g/dL (13.3-17.7); LYMPHOCYTES # (AUTO) 1.5 10^3/uL (1.0-4.0); LYMPHOCYTES % (AUTO) 17 % (12-44); MEAN CORPUSCULAR VOLUME 87 fL (80-99); MEAN PLATELET VOLUME 11.7 fL (9.0-12.2); MONOCYTES % (AUTO) 11 % (0-12); NEUTROPHILS # (AUTO) 6.2 10^3/uL (1.8-7.8); NEUTROPHILS % (AUTO) 71 % (42-75); PLATELET COUNT 109 10^3/uL (130-400); WHITE BLOOD COUNT 8.7 10^3/uL (4.3-11.0)
[2020-04-25 13:17] LABS: ALANINE AMINOTRANSFERASE 31 U/L (0-55); ALBUMIN 3.2 GM/DL (3.2-4.5); ALKALINE PHOSPHATASE 49 U/L (40-136); BILIRUBIN,TOTAL 0.9 MG/DL (0.1-1.0); BUN/CREATININE RATIO 13; CALCIUM 8.6 MG/DL (8.5-10.1); CARBON DIOXIDE 23 MMOL/L (21-32); CHLORIDE 104 MMOL/L (98-107); CREATININE SERUM 0.77 MG/DL (0.60-1.30); GFR ESTIMATED > 60; GLUCOSE 94 MG/DL (70-105); MAGNESIUM 1.9 MG/DL (1.6-2.4); SODIUM 136 MMOL/L (135-145); TOTAL PROTEIN 7.9 GM/DL (6.4-8.2)
[2020-05-02 09:38] LABS: EOSINOPHILS # (AUTO) 0.1 10^3/uL (0.0-0.3); MEAN CORPUSCULAR HEMOGLOBIN 28 pg (25-34); NEUTROPHILS % (AUTO) 63 % (42-75)
[2020-05-02 09:40] LABS: BASOPHILS % (AUTO) 1 % (0-10); EOSINOPHILS % (AUTO) 2 % (0-10); HEMATOCRIT 40 % (40-54); LYMPHOCYTES # (AUTO) 0.9 10^3/uL (1.0-4.0); LYMPHOCYTES % (AUTO) 19 % (12-44); MEAN CORPUSCULAR HGB CONC 33 g/dL (32-36); MEAN CORPUSCULAR VOLUME 86 fL (80-99); MEAN PLATELET VOLUME 11.4 fL (9.0-12.2); MONOCYTES # (AUTO) 0.7 10^3/uL (0.0-1.0); MONOCYTES % (AUTO) 15 % (0-12); PLATELET COUNT 132 10^3/uL (130-400); WHITE BLOOD COUNT 4.7 10^3/uL (4.3-11.0)
[2020-05-02 09:54] LABS: BUN/CREATININE RATIO 11; CALCIUM 8.7 MG/DL (8.5-10.1); CARBON DIOXIDE 23 MMOL/L (21-32); CHLORIDE 101 MMOL/L (98-107); CREATININE SERUM 0.73 MG/DL (0.60-1.30); GFR ESTIMATED > 60; GLUCOSE 87 MG/DL (70-105); POTASSIUM 3.7 MMOL/L (3.6-5.0); SODIUM 135 MMOL/L (135-145)
[2020-05-09 09:15] LABS: BASOPHILS # (AUTO) 0.1 10^3/uL (0.0-0.1); BASOPHILS % (AUTO) 2 % (0-10); EOSINOPHILS # (AUTO) 0.1 10^3/uL (0.0-0.3); EOSINOPHILS % (AUTO) 2 % (0-10); HEMATOCRIT 41 % (40-54); HEMOGLOBIN 13.1 g/dL (13.3-17.7); LYMPHOCYTES # (AUTO) 0.7 10^3/uL (1.0-4.0); LYMPHOCYTES % (AUTO) 22 % (12-44); MEAN CORPUSCULAR HEMOGLOBIN 27 pg (25-34); MEAN CORPUSCULAR HGB CONC 32 g/dL (32-36); MEAN CORPUSCULAR VOLUME 86 fL (80-99); MEAN PLATELET VOLUME 11.2 fL (9.0-12.2); MONOCYTES # (AUTO) 0.4 10^3/uL (0.0-1.0); MONOCYTES % (AUTO) 12 % (0-12); NEUTROPHILS # (AUTO) 2.1 10^3/uL (1.8-7.8); NEUTROPHILS % (AUTO) 62 % (42-75); PLATELET COUNT 128 10^3/uL (130-400); WHITE BLOOD COUNT 3.3 10^3/uL (4.3-11.0)
[2020-05-09 09:27] LABS: ALBUMIN 3.1 GM/DL (3.2-4.5); CHLORIDE 103 MMOL/L (98-107); POTASSIUM 4.2 MMOL/L (3.6-5.0); SODIUM 136 MMOL/L (135-145)
[2020-05-09 09:29] LABS: CALCIUM 8.8 MG/DL (8.5-10.1)
[2020-05-09 09:30] LABS: GLUCOSE 93 MG/DL (70-105); TOTAL PROTEIN 7.4 GM/DL (6.4-8.2)
[2020-05-09 09:31] LABS: CARBON DIOXIDE 26 MMOL/L (21-32)
[2020-05-09 09:32] LABS: BILIRUBIN,TOTAL 0.6 MG/DL (0.1-1.0)
[2020-05-09 09:33] LABS: ALKALINE PHOSPHATASE 64 U/L (40-136); CREATININE SERUM 0.74 MG/DL (0.60-1.30); GFR ESTIMATED > 60
[2020-05-09 09:35] LABS: BUN/CREATININE RATIO 12
[2020-05-09 09:36] LABS: ALANINE AMINOTRANSFERASE 55 U/L (0-55); MAGNESIUM 1.9 MG/DL (1.6-2.4)
[2020-05-16 09:05] LABS: BASOPHILS % (AUTO) 1 % (0-10); EOSINOPHILS % (AUTO) 2 % (0-10); HEMATOCRIT 36 % (40-54); HEMOGLOBIN 11.6 g/dL (13.3-17.7); LYMPHOCYTES # (AUTO) 0.5 10^3/uL (1.0-4.0); LYMPHOCYTES % (AUTO) 25 % (12-44); MEAN CORPUSCULAR HEMOGLOBIN 28 pg (25-34); MEAN CORPUSCULAR HGB CONC 32 g/dL (32-36); MEAN CORPUSCULAR VOLUME 86 fL (80-99); MEAN PLATELET VOLUME 11.5 fL (9.0-12.2); MONOCYTES # (AUTO) 0.4 10^3/uL (0.0-1.0); MONOCYTES % (AUTO) 22 % (0-12); NEUTROPHILS # (AUTO) 0.9 10^3/uL (1.8-7.8); NEUTROPHILS % (AUTO) 50 % (42-75); PLATELET COUNT 65 10^3/uL (130-400); WHITE BLOOD COUNT 1.8 10^3/uL (4.3-11.0)
[2020-05-16 09:23] LABS: BUN/CREATININE RATIO 11; CALCIUM 8.4 MG/DL (8.5-10.1); CARBON DIOXIDE 26 MMOL/L (21-32); CHLORIDE 108 MMOL/L (98-107); CREATININE SERUM 0.73 MG/DL (0.60-1.30); GFR ESTIMATED > 60; GLUCOSE 84 MG/DL (70-105); MAGNESIUM 4.7 MG/DL (1.6-2.4); POTASSIUM 4.2 MMOL/L (3.6-5.0); SODIUM 139 MMOL/L (135-145)
[2020-05-23 09:57] LABS: BASOPHILS % (AUTO) 1 % (0-10); EOSINOPHILS % (AUTO) 2 % (0-10); HEMATOCRIT 35 % (40-54); HEMOGLOBIN 11.2 g/dL (13.3-17.7); LYMPHOCYTES # (AUTO) 0.3 10^3/uL (1.0-4.0); LYMPHOCYTES % (AUTO) 13 % (12-44); MEAN CORPUSCULAR HEMOGLOBIN 28 pg (25-34); MEAN CORPUSCULAR HGB CONC 32 g/dL (32-36); MEAN CORPUSCULAR VOLUME 86 fL (80-99); MEAN PLATELET VOLUME 12.3 fL (9.0-12.2); MONOCYTES # (AUTO) 0.4 10^3/uL (0.0-1.0); MONOCYTES % (AUTO) 17 % (0-12); NEUTROPHILS # (AUTO) 1.5 10^3/uL (1.8-7.8); NEUTROPHILS % (AUTO) 67 % (42-75); PLATELET COUNT 47 10^3/uL (130-400); WHITE BLOOD COUNT 2.3 10^3/uL (4.3-11.0)
[2020-05-23 10:13] LABS: BUN/CREATININE RATIO 15; CALCIUM 8.2 MG/DL (8.5-10.1); CARBON DIOXIDE 22 MMOL/L (21-32); CHLORIDE 106 MMOL/L (98-107); CREATININE SERUM 0.71 MG/DL (0.60-1.30); GFR ESTIMATED > 60; GLUCOSE 98 MG/DL (70-105); POTASSIUM 4.2 MMOL/L (3.6-5.0); SODIUM 137 MMOL/L (135-145)
[2020-05-23 15:12] LABS: BILIRUBIN,URINE NEGATIVE (NEGATIVE); CLARITY,URINE OTHER; COLOR,URINE YELLOW; GLUCOSE, URINE (UA) NEGATIVE (NEGATIVE); KETONES,URINE NEGATIVE (NEGATIVE); LEUKOCYTE ESTERASE ,URINE 2+ (NEGATIVE); NITRITE,URINE POSITIVE (NEGATIVE); PH,URINE 8.5 (5-9); PROTEIN,URINE NEGATIVE (NEGATIVE)
[2020-05-23 15:37] LABS: WBC,URINE 50-100 /HPF
[2020-05-23 15:39] LABS: BACTERIA,URINE MODERATE /HPF
[2020-05-25 09:36] LABS: BASOPHILS % (AUTO) 1 % (0-10); EOSINOPHILS % (AUTO) 1 % (0-10); HEMATOCRIT 30 % (40-54); LYMPHOCYTES # (AUTO) 0.2 10^3/uL (1.0-4.0); LYMPHOCYTES % (AUTO) 10 % (12-44); MEAN CORPUSCULAR HEMOGLOBIN 28 pg (25-34); MEAN CORPUSCULAR HGB CONC 33 g/dL (32-36); MEAN CORPUSCULAR VOLUME 86 fL (80-99); MEAN PLATELET VOLUME 11.3 fL (9.0-12.2); MONOCYTES # (AUTO) 0.3 10^3/uL (0.0-1.0); MONOCYTES % (AUTO) 14 % (0-12); NEUTROPHILS # (AUTO) 1.3 10^3/uL (1.8-7.8); NEUTROPHILS % (AUTO) 74 % (42-75); PLATELET COUNT 51 10^3/uL (130-400); WHITE BLOOD COUNT 1.7 10^3/uL (4.3-11.0)
[2020-05-25 09:56] LABS: BUN/CREATININE RATIO 17; CALCIUM 7.8 MG/DL (8.5-10.1); CARBON DIOXIDE 22 MMOL/L (21-32); CHLORIDE 105 MMOL/L (98-107); CREATININE SERUM 0.63 MG/DL (0.60-1.30); GFR ESTIMATED > 60; GLUCOSE 117 MG/DL (70-105); POTASSIUM 3.8 MMOL/L (3.6-5.0); SODIUM 135 MMOL/L (135-145)
[2020-05-30 09:08] LABS: BASOPHILS % (AUTO) 1 % (0-10); EOSINOPHILS # (AUTO) 0.1 10^3/uL (0.0-0.3); EOSINOPHILS % (AUTO) 8 % (0-10); HEMATOCRIT 33 % (40-54); HEMOGLOBIN 10.5 g/dL (13.3-17.7); LYMPHOCYTES # (AUTO) 0.4 10^3/uL (1.0-4.0); LYMPHOCYTES % (AUTO) 29 % (12-44); MEAN CORPUSCULAR HEMOGLOBIN 28 pg (25-34); MEAN CORPUSCULAR HGB CONC 32 g/dL (32-36); MEAN CORPUSCULAR VOLUME 87 fL (80-99); MEAN PLATELET VOLUME 11.2 fL (9.0-12.2); MONOCYTES # (AUTO) 0.2 10^3/uL (0.0-1.0); MONOCYTES % (AUTO) 13 % (0-12); NEUTROPHILS # (AUTO) 0.7 10^3/uL (1.8-7.8); NEUTROPHILS % (AUTO) 49 % (42-75); PLATELET COUNT 92 10^3/uL (130-400)
[2020-05-30 09:12] LABS: WHITE BLOOD COUNT 1.4 10^3/uL (4.3-11.0)
[2020-05-30 09:27] LABS: BUN/CREATININE RATIO 14; CALCIUM 8.3 MG/DL (8.5-10.1); CARBON DIOXIDE 23 MMOL/L (21-32); CHLORIDE 106 MMOL/L (98-107); GFR ESTIMATED > 60; GLUCOSE 142 MG/DL (70-105); SODIUM 136 MMOL/L (135-145)
[2020-06-06 09:07] LABS: BASOPHILS % (AUTO) 1 % (0-10); EOSINOPHILS # (AUTO) 0.1 10^3/uL (0.0-0.3); EOSINOPHILS % (AUTO) 5 % (0-10); HEMATOCRIT 33 % (40-54); HEMOGLOBIN 10.6 g/dL (13.3-17.7); LYMPHOCYTES # (AUTO) 0.3 10^3/uL (1.0-4.0); LYMPHOCYTES % (AUTO) 18 % (12-44); MEAN CORPUSCULAR HEMOGLOBIN 28 pg (25-34); MEAN CORPUSCULAR HGB CONC 32 g/dL (32-36); MEAN CORPUSCULAR VOLUME 87 fL (80-99); MEAN PLATELET VOLUME 10.8 fL (9.0-12.2); MONOCYTES # (AUTO) 0.4 10^3/uL (0.0-1.0); MONOCYTES % (AUTO) 25 % (0-12); NEUTROPHILS # (AUTO) 0.9 10^3/uL (1.8-7.8); NEUTROPHILS % (AUTO) 51 % (42-75); PLATELET COUNT 141 10^3/uL (130-400); WHITE BLOOD COUNT 1.7 10^3/uL (4.3-11.0)
[2020-06-06 09:30] LABS: BUN/CREATININE RATIO 16; CALCIUM 8.5 MG/DL (8.5-10.1); CARBON DIOXIDE 24 MMOL/L (21-32); CHLORIDE 105 MMOL/L (98-107); CREATININE SERUM 0.69 MG/DL (0.60-1.30); GFR ESTIMATED > 60; GLUCOSE 96 MG/DL (70-105); POTASSIUM 3.9 MMOL/L (3.6-5.0); SODIUM 137 MMOL/L (135-145)
[2020-06-08 10:02] LABS: BUN/CREATININE RATIO 21; CALCIUM 8.6 MG/DL (8.5-10.1); CARBON DIOXIDE 24 MMOL/L (21-32); CHLORIDE 104 MMOL/L (98-107); CREATININE SERUM 0.68 MG/DL (0.60-1.30); GFR ESTIMATED > 60; GLUCOSE 112 MG/DL (70-105); POTASSIUM 3.4 MMOL/L (3.6-5.0); SODIUM 138 MMOL/L (135-145)
[~2020-06-10] VITALS: Ht 172.7 cm; Wt 96.2 kg
[~2020-06-10 08:43] MED LIST changes: +CISplatin 70 MG, MANNITOL 25% INJ (CANCER CTR) 12.5 GM, MAGNESIUM SULFATE (CANCER CTR) ... IV SCH; +FOSAPREPITANT (CANCER CENTER) 150 MG in NS (IVPB) CANCER CENTER ONLY 150 ML IV SCH; -HEParin (CATH LAB) 2,000 ML IV ONE; +HYDR118S10 PO; -LIDOCAINE 1% INJ 20 ML 20 ML VIAL ONE; +MAGIC MOUTHWASH PO; +NS IV 1000 ML (CANCER CTR) IV SCH; -NS IV 1000 ML 1,000 ML ONE
== END 2020-06-12 | disposition home or self-care (01) ==
LOC: ONC 08:43
PROVIDERS: ATTEND Internal Medicine Hematology & Oncology
DX: C01 Malignant neoplasm of base of tongue (principal); I10 Essential (primary) hypertension; Z86.19 Personal history of other infectious and parasitic diseases
CPT/HCPCS: 80053; 85025; G0463; 36591; 77300; 77301; 77334; 77336; 77338; 77386; 80048; 81000; 83735; 87077; 87088; 87186; 87635; 87804; 96360; 96361; 96367; 96375; 96413; 99204; 99213; 99214

== ENCOUNTER → 2020-07-11 | Outpatient (CLI) | payer MEDICARE, OTHER ==
[~2020-07-11] MED LIST changes: +CATHETER FLUSH 10 ML SYR IV PRN; -CISplatin 70 MG, MANNITOL 25% INJ (CANCER CTR) 12.5 GM, MAGNESIUM SULFATE (CANCER CTR) ... IV SCH; -FOSAPREPITANT (CANCER CENTER) 150 MG in NS (IVPB) CANCER CENTER ONLY 150 ML IV SCH; +HOLD METFORMIN - RECEIVED CONTRAST 20 ML VIAL IV SCH; +IOHEXOL 350 MG/ML 100 ML (OMNIPAQUE 350) VIAL IV ONE; +NS 100 ML (IVPB) BAG IV ONE; -NS IV 1000 ML (CANCER CTR) IV SCH
--- NOTE | 2020-07-11 10:18 | Diagnostic Imaging Report ---
INDICATION: Malignant neoplasm of the base of the tongue. Patient is status post radiation therapy and chemotherapy. TECHNIQUE: Axial imaging through the neck and chest was performed after the administration of intravenous contrast. FINDINGS: CT NECK: The visualized intracranial structures are unremarkable. The posterior nasopharynx is unremarkable. The previously noted mass at the base of the tongue on the right side is significantly reduced in size and now barely visible. There is some residual density at this location measuring approximately 18 mm x 10 mm compared to 27 mm x 26 mm on the prior exam. The parapharyngeal fat planes are preserved. The necrotic lymph node in the right neck at the jugulodigastric location has significantly reduced in size, now measuring 17 mm x 10 mm compared with an approximately 28 mm diameter on the prior exam. No new enlarged lymph nodes are seen. The posterior cervical space and supraclavicular regions are unremarkable. No thyroid mass is detected. The submandibular and bilateral parotid glands appear to be symmetric and without evidence of a discrete mass. The epiglottis and larynx are unremarkable. IMPRESSION: Significant treatment response since the prior CT of 02/05/2020. The base of tongue mass on the right side is significantly reduced in size. Necrotic right neck lymph node has also significantly reduced in size. No new abnormality is detected. CT CHEST: A right chest wall port is noted. No axillary lymphadenopathy is identified. No definite mediastinal or hilar lymphadenopathy is detected. No pericardial or pleural fluid is identified. A tiny nodule in the anterior left upper lobe, image 71 series 3, is stable at 3 mm. There is some linear scarring in the lingula. No new pulmonary nodules or masses are detected. The upper abdomen is unremarkable. IMPRESSION: Stable CT chest since 03/01/2020. No thoracic lymphadenopathy is detected. There is a stable left upper lobe pulmonary micronodule. No new pulmonary nodules or masses are detected. Dictated by: Dictated on workstation # [id number]
== END ==
LOC: RAD FS 09:12
PROVIDERS: ATTEND Nurse Practitioner Adult Health
DX: C01 Malignant neoplasm of base of tongue (principal); R91.1 Solitary pulmonary nodule; Z92.21 Personal history of antineoplastic chemotherapy; Z92.3 Personal history of irradiation
CPT/HCPCS: 70491; 71260

== ENCOUNTER 2020-07-28 12:50 | Outpatient (RCR) | payer MEDICARE, OTHER ==
[2020-06-15 10:53] LABS: BASOPHILS % (AUTO) 1 % (0-10); EOSINOPHILS # (AUTO) 0.1 10^3/uL (0.0-0.3); EOSINOPHILS % (AUTO) 3 % (0-10); HEMATOCRIT 34 % (40-54); HEMOGLOBIN 11.1 g/dL (13.3-17.7); LYMPHOCYTES # (AUTO) 0.4 10^3/uL (1.0-4.0); LYMPHOCYTES % (AUTO) 15 % (12-44); MEAN CORPUSCULAR HEMOGLOBIN 28 pg (25-34); MEAN CORPUSCULAR HGB CONC 32 g/dL (32-36); MEAN CORPUSCULAR VOLUME 87 fL (80-99); MEAN PLATELET VOLUME 12.4 fL (9.0-12.2); MONOCYTES # (AUTO) 0.6 10^3/uL (0.0-1.0); MONOCYTES % (AUTO) 27 % (0-12); NEUTROPHILS # (AUTO) 1.2 10^3/uL (1.8-7.8); NEUTROPHILS % (AUTO) 53 % (42-75); PLATELET COUNT 127 10^3/uL (130-400); WHITE BLOOD COUNT 2.3 10^3/uL (4.3-11.0)
[2020-06-15 11:13] LABS: ALANINE AMINOTRANSFERASE 48 U/L (0-55); ALBUMIN 2.8 GM/DL (3.2-4.5); ALKALINE PHOSPHATASE 107 U/L (40-136); BILIRUBIN,TOTAL 0.5 MG/DL (0.1-1.0); BUN/CREATININE RATIO 17; CALCIUM 8.5 MG/DL (8.5-10.1); CARBON DIOXIDE 24 MMOL/L (21-32); CHLORIDE 101 MMOL/L (98-107); CREATININE SERUM 0.64 MG/DL (0.60-1.30); GFR ESTIMATED > 60; GLUCOSE 90 MG/DL (70-105); POTASSIUM 4.1 MMOL/L (3.6-5.0); SODIUM 131 MMOL/L (135-145); TOTAL PROTEIN 6.6 GM/DL (6.4-8.2)
[2020-06-30 09:32] LABS: BASOPHILS % (AUTO) 1 % (0-10); EOSINOPHILS # (AUTO) 0.2 10^3/uL (0.0-0.3); EOSINOPHILS % (AUTO) 8 % (0-10); HEMATOCRIT 32 % (40-54); HEMOGLOBIN 10.1 g/dL (13.3-17.7); LYMPHOCYTES # (AUTO) 0.4 10^3/uL (1.0-4.0); LYMPHOCYTES % (AUTO) 20 % (12-44); MEAN CORPUSCULAR HEMOGLOBIN 29 pg (25-34); MEAN CORPUSCULAR HGB CONC 32 g/dL (32-36); MEAN CORPUSCULAR VOLUME 90 fL (80-99); MONOCYTES # (AUTO) 0.3 10^3/uL (0.0-1.0); MONOCYTES % (AUTO) 15 % (0-12); NEUTROPHILS # (AUTO) 1.1 10^3/uL (1.8-7.8); NEUTROPHILS % (AUTO) 56 % (42-75); WHITE BLOOD COUNT 1.9 10^3/uL (4.3-11.0)
[2020-06-30 09:55] LABS: ALANINE AMINOTRANSFERASE 54 U/L (0-55); ALBUMIN 2.5 GM/DL (3.2-4.5); ALKALINE PHOSPHATASE 78 U/L (40-136); BILIRUBIN,TOTAL 0.6 MG/DL (0.1-1.0); BUN/CREATININE RATIO 17; CALCIUM 8.3 MG/DL (8.5-10.1); CARBON DIOXIDE 23 MMOL/L (21-32); CHLORIDE 106 MMOL/L (98-107); CREATININE SERUM 0.65 MG/DL (0.60-1.30); GFR ESTIMATED > 60; GLUCOSE 140 MG/DL (70-105); POTASSIUM 3.9 MMOL/L (3.6-5.0); SODIUM 137 MMOL/L (135-145); TOTAL PROTEIN 5.8 GM/DL (6.4-8.2)
[2020-06-30 09:57] LABS: PLATELET COUNT 37 10^3/uL (130-400)
[2020-07-07 09:00] LABS: BASOPHILS % (AUTO) 0 % (0-10); EOSINOPHILS # (AUTO) 0.1 10^3/uL (0.0-0.3); EOSINOPHILS % (AUTO) 4 % (0-10); HEMATOCRIT 34 % (40-54); HEMOGLOBIN 10.8 g/dL (13.3-17.7); LYMPHOCYTES # (AUTO) 0.7 10^3/uL (1.0-4.0); LYMPHOCYTES % (AUTO) 28 % (12-44); MEAN CORPUSCULAR HEMOGLOBIN 30 pg (25-34); MEAN CORPUSCULAR HGB CONC 32 g/dL (32-36); MEAN CORPUSCULAR VOLUME 92 fL (80-99); MEAN PLATELET VOLUME 11.3 fL (9.0-12.2); MONOCYTES # (AUTO) 0.4 10^3/uL (0.0-1.0); MONOCYTES % (AUTO) 16 % (0-12); NEUTROPHILS # (AUTO) 1.2 10^3/uL (1.8-7.8); NEUTROPHILS % (AUTO) 52 % (42-75); PLATELET COUNT 90 10^3/uL (130-400); WHITE BLOOD COUNT 2.3 10^3/uL (4.3-11.0)
[2020-07-07 09:56] LABS: ALANINE AMINOTRANSFERASE 76 U/L (0-55); ALBUMIN 2.6 GM/DL (3.2-4.5); ALKALINE PHOSPHATASE 103 U/L (40-136); BILIRUBIN,TOTAL 0.5 MG/DL (0.1-1.0); BUN/CREATININE RATIO 23; CALCIUM 8.5 MG/DL (8.5-10.1); CARBON DIOXIDE 24 MMOL/L (21-32); CHLORIDE 107 MMOL/L (98-107); GFR ESTIMATED > 60; GLUCOSE 86 MG/DL (70-105); SODIUM 136 MMOL/L (135-145); TOTAL PROTEIN 6.3 GM/DL (6.4-8.2)
[~2020-07-28 12:50] MED LIST changes: -CATHETER FLUSH 10 ML SYR IV PRN; -HOLD METFORMIN - RECEIVED CONTRAST 20 ML VIAL IV SCH; -IOHEXOL 350 MG/ML 100 ML (OMNIPAQUE 350) VIAL IV ONE; -NS 100 ML (IVPB) BAG IV ONE
== END 2020-09-11 | disposition home or self-care (01) ==
LOC: ONC 12:50
PROVIDERS: ATTEND Internal Medicine Hematology & Oncology
DX: C01 Malignant neoplasm of base of tongue (principal); I10 Essential (primary) hypertension; J02.9 Acute pharyngitis, unspecified; Z86.19 Personal history of other infectious and parasitic diseases; Z98.890 Other specified postprocedural states; Z80.8 Family history of malignant neoplasm of other organs or systems; Z87.891 Personal history of nicotine dependence; Z79.899 Other long term (current) drug therapy; Z79.891 Long term (current) use of opiate analgesic; Z79.52 Long term (current) use of systemic steroids
CPT/HCPCS: 77336; 77386; 80053; 85025; 99213

== ENCOUNTER → 2020-09-12 | Outpatient (CLI) | payer MEDICARE ==
[~2020-09-12] MED LIST changes: +CATHETER FLUSH 10 ML SYR IV PRN; +HOLD METFORMIN - RECEIVED CONTRAST 20 ML VIAL IV SCH; +IOHEXOL 350 MG/ML 100 ML (OMNIPAQUE 350) VIAL IV ONE; +NS 100 ML (IVPB) BAG IV ONE
--- NOTE | 2020-09-12 14:42 | Diagnostic Imaging Report ---
CT NECK/CHEST W TECHNIQUE: CT imaging of the neck and chest was performed with IV contrast. Automatic exposure controls were utilized to keep dose as low as reasonably achievable. INDICATION: Malignant neoplasm of the base of the tongue. COMPARISON: CT neck and chest from 07/11/2020 and 02/05/2020. FINDINGS: NECK: Slight architectural distortion at the base of the tongue is stable compatible with post-treatment change. No recurrent soft tissue mass at the base of the tongue or along the epiglottis. The false and true vocal folds are normal in appearance. No cervical lymphadenopathy. Thyroid is normal. The submandibular and parotid glands are normal. Visualized portions of the brain show no hydrocephalus or space-occupying mass. Mastoid air cells and paranasal sinuses are clear. Stable multilevel degenerative disc disease, greatest at C5-C6 and C6-C7. CHEST: No endoluminal nodule within the trachea. No new pulmonary mass or nodule. The 3 mm nodule in the lingula is now calcified indicative of sequelae of old granulomatous infection. No pleural effusion or pneumothorax. No supraclavicular or axillary lymphadenopathy. No mediastinal or hilar lymphadenopathy. Heart is normal in size without pericardial effusion. Normal caliber thoracic aorta. Cholelithiasis is unchanged. Stable large splenule along the medial aspect of the spleen. No adrenal mass. No concerning focal osseous lesion. Stable right IJ Port-A-Cath. IMPRESSION: 1. Stable post-treatment changes in the neck. No features of local recurrence. 2. No metastatic disease to the chest. The 3 mm micronodule in the lingula has now calcified indicative of a benign process. Dictated by: Dictated on workstation # [id number]
== END ==
LOC: RAD FS 10:30
PROVIDERS: ATTEND Internal Medicine Hematology & Oncology
DX: C01 Malignant neoplasm of base of tongue (principal); J98.4 Other disorders of lung
CPT/HCPCS: 70491; 71260

== ENCOUNTER 2020-11-17 10:01 | Outpatient (RCR) | payer MEDICARE, OTHER ==
[2020-09-12 09:35] LABS: HEMOGLOBIN 10.8 g/dL (13.3-17.7)
[2020-09-12 09:37] LABS: BASOPHILS % (AUTO) 1 % (0-10); EOSINOPHILS # (AUTO) 0.1 10^3/uL (0.0-0.3); EOSINOPHILS % (AUTO) 6 % (0-10); HEMATOCRIT 33 % (40-54); LYMPHOCYTES # (AUTO) 0.5 10^3/uL (1.0-4.0); LYMPHOCYTES % (AUTO) 33 % (12-44); MEAN CORPUSCULAR HEMOGLOBIN 29 pg (25-34); MEAN CORPUSCULAR HGB CONC 32 g/dL (32-36); MEAN CORPUSCULAR VOLUME 88 fL (80-99); MEAN PLATELET VOLUME 12.4 fL (9.0-12.2); MONOCYTES # (AUTO) 0.2 10^3/uL (0.0-1.0); MONOCYTES % (AUTO) 15 % (0-12); NEUTROPHILS # (AUTO) 0.7 10^3/uL (1.8-7.8); NEUTROPHILS % (AUTO) 45 % (42-75); PLATELET COUNT 50 10^3/uL (130-400); WHITE BLOOD COUNT 1.6 10^3/uL (4.3-11.0)
[2020-09-12 09:54] LABS: ALANINE AMINOTRANSFERASE 85 U/L (0-55); ALBUMIN 2.7 GM/DL (3.2-4.5); ALKALINE PHOSPHATASE 67 U/L (40-136); BILIRUBIN,TOTAL 0.5 MG/DL (0.1-1.0); BUN/CREATININE RATIO 11; CALCIUM 8.5 MG/DL (8.5-10.1); CARBON DIOXIDE 24 MMOL/L (21-32); CHLORIDE 109 MMOL/L (98-107); CREATININE SERUM 0.74 MG/DL (0.60-1.30); GFR ESTIMATED > 60; GLUCOSE 96 MG/DL (70-105); POTASSIUM 3.9 MMOL/L (3.6-5.0); SODIUM 139 MMOL/L (135-145); TOTAL PROTEIN 6.1 GM/DL (6.4-8.2)
[~2020-11-17 10:01] MED LIST changes: -CATHETER FLUSH 10 ML SYR IV PRN; -HOLD METFORMIN - RECEIVED CONTRAST 20 ML VIAL IV SCH; -IOHEXOL 350 MG/ML 100 ML (OMNIPAQUE 350) VIAL IV ONE; -NS 100 ML (IVPB) BAG IV ONE
== END 2020-12-11 | disposition home or self-care (01) ==
LOC: ONC 10:01
PROVIDERS: ATTEND Internal Medicine Hematology & Oncology
DX: Z45.2 Encounter for adjustment and management of vascular access device (principal); C01 Malignant neoplasm of base of tongue; I10 Essential (primary) hypertension; J02.9 Acute pharyngitis, unspecified; Z86.19 Personal history of other infectious and parasitic diseases; Z98.890 Other specified postprocedural states; Z80.8 Family history of malignant neoplasm of other organs or systems; Z87.891 Personal history of nicotine dependence; Z79.899 Other long term (current) drug therapy; Z79.891 Long term (current) use of opiate analgesic; Z79.52 Long term (current) use of systemic steroids
CPT/HCPCS: 36591; 80053; 84443; 85025; 99213

== ENCOUNTER → 2020-12-12 | Outpatient (CLI) | payer MEDICARE ==
[~2020-12-12] MED LIST changes: +HOLD METFORMIN - RECEIVED CONTRAST 20 ML VIAL IV SCH; +IOHEXOL 350 MG/ML 100 ML (OMNIPAQUE 350) VIAL IV ONE; +NS 100 ML (IVPB) BAG IV ONE
[2020-12-12] MEDS: CATHETER FLUSH 10 ML SYR IV PRN ×2 (10:42→10:54)
--- NOTE | 2020-12-12 14:37 | Diagnostic Imaging Report ---
EXAMINATION: CT neck and chest with intravenous contrast. TECHNIQUE: Multiple contiguous axial images were obtained through the neck and chest after the uneventful administration of intravenous contrast. All CT scans use one or more of the following dose optimizing techniques: automated exposure control, MA and/or KvP adjustment based on patient size and exam type or iterative reconstruction. HISTORY: Base of tongue cancer COMPARISON: 09/12/2020 FINDINGS: Neck CT: Scattered subcentimeter lymph nodes are seen in the neck. None are pathologically enlarged or abnormally enhancing. The muscles of the neck are normal. Vessels of the neck demonstrate normal course and caliber. A small subcutaneous stranding and edema in the fascial planes in the neck which may be related to prior therapy. No recurrent mass is seen. The visualized airway is widely patent. The base of the skull and the temporal bones are normal. Limited views of the brain including the cerebellum and brainstem are normal. The limited view of the [place] of [place] is unremarkable. The visualized portions of the orbits are normal. The spinal canal is normal in caliber. Intervertebral disk heights are normal. Neural foramina are normal. Chest CT: There is no edema or pneumonia. No pleural effusion. No pneumothorax. No suspicious nodules. There is a small amount of mucus in trachea. There is no axillary or supraclavicular lymphadenopathy. There is no mediastinal lymphadenopathy. Heart size is normal. There are mild coronary artery calcifications. No pericardial effusion. Aorta is normal in caliber. Limited views of the upper abdomen liver surface is mildly nodular suggestive of cirrhosis. There are paraesophageal varices. There are no suspicious osseus lesions. IMPRESSION: 1. Posttreatment changes in the neck without evidence for local recurrence. 2. No metastatic disease seen in the chest. 3. Cirrhotic appearing liver with paraesophageal varices. Dictated by: Dictated on workstation # [id number]
--- NOTE | 2020-12-12 18:04 | Diagnostic Imaging Report ---
INDICATION: Malignant neoplasm at the base of the tongue. TECHNIQUE: Patient was administer 26.9 mCi technetium-99m MDP intravenously, and whole body imaging was performed after a three-hour delay. COMPARISON: No prior bone scans are available for comparison. FINDINGS: There is normal uptake of activity by the axial and appendicular skeleton. There is uptake by both kidneys with excretion into the urinary bladder. No suspicious foci are identified to suggest osseous metastatic disease. IMPRESSION: No scintigraphic evidence of osseous metastatic disease. Dictated by: Dictated on workstation # [id number]
== END ==
LOC: CARD 09:52
PROVIDERS: ATTEND Internal Medicine Hematology & Oncology
DX: I85.00 Esophageal varices without bleeding (principal); E03.9 Hypothyroidism, unspecified; Z85.810 Personal history of malignant neoplasm of tongue
CPT/HCPCS: 70491; 71260; 78306; A9503

== ENCOUNTER 2020-12-15 13:12 | Outpatient (RCR) | payer MEDICARE ==
[2020-12-12 09:47] LABS: HEMOGLOBIN 11.3 g/dL (13.3-17.7)
[2020-12-12 09:49] LABS: BASOPHILS % (AUTO) 2 % (0-10); EOSINOPHILS % (AUTO) 3 % (0-10); HEMATOCRIT 36 % (40-54); LYMPHOCYTES # (AUTO) 0.4 10^3/uL (1.0-4.0); LYMPHOCYTES % (AUTO) 29 % (12-44); MEAN CORPUSCULAR HEMOGLOBIN 26 pg (25-34); MEAN CORPUSCULAR HGB CONC 31 g/dL (32-36); MEAN CORPUSCULAR VOLUME 82 fL (80-99); MONOCYTES # (AUTO) 0.2 10^3/uL (0.0-1.0); MONOCYTES % (AUTO) 13 % (0-12); NEUTROPHILS # (AUTO) 0.7 10^3/uL (1.8-7.8); NEUTROPHILS % (AUTO) 54 % (42-75); PLATELET COUNT 60 10^3/uL (130-400)
[2020-12-12 10:12] LABS: WHITE BLOOD COUNT 1.4 10^3/uL (4.3-11.0)
[2020-12-12 10:34] LABS: BILIRUBIN,TOTAL 0.6 MG/DL (0.1-1.0); CALCIUM 8.6 MG/DL (8.5-10.1); CREATININE SERUM 0.66 MG/DL (0.60-1.30); POTASSIUM 3.8 MMOL/L (3.6-5.0); TOTAL PROTEIN 6.7 GM/DL (6.4-8.2)
[~2020-12-15 13:12] MED LIST changes: -HOLD METFORMIN - RECEIVED CONTRAST 20 ML VIAL IV SCH; -IOHEXOL 350 MG/ML 100 ML (OMNIPAQUE 350) VIAL IV ONE; -NS 100 ML (IVPB) BAG IV ONE; -TERB250T16 PO; +TERB250T88 PO
== END 2021-03-03 | disposition home or self-care (01) ==
LOC: ONC 13:12
PROVIDERS: ATTEND Internal Medicine Hematology & Oncology
DX: Z45.2 Encounter for adjustment and management of vascular access device (principal); C01 Malignant neoplasm of base of tongue; I10 Essential (primary) hypertension; J02.9 Acute pharyngitis, unspecified; Z98.890 Other specified postprocedural states; Z80.8 Family history of malignant neoplasm of other organs or systems; Z87.891 Personal history of nicotine dependence; Z79.899 Other long term (current) drug therapy; Z79.891 Long term (current) use of opiate analgesic; Z79.52 Long term (current) use of systemic steroids
CPT/HCPCS: 36591; 80053; 84443; 85025; 99213

== ENCOUNTER 2021-03-09 08:51 | Outpatient (RCR) | payer MEDICARE ==
[2021-03-09 09:07] LABS: HEMOGLOBIN 11.9 g/dL (13.3-17.7)
[2021-03-09 09:09] LABS: BASOPHILS % (AUTO) 1 % (0-10); EOSINOPHILS # (AUTO) 0.1 10^3/uL (0.0-0.3); EOSINOPHILS % (AUTO) 4 % (0-10); HEMATOCRIT 37 % (40-54); LYMPHOCYTES # (AUTO) 0.9 10^3/uL (1.0-4.0); LYMPHOCYTES % (AUTO) 38 % (12-44); MEAN CORPUSCULAR HEMOGLOBIN 25 pg (25-34); MEAN CORPUSCULAR HGB CONC 32 g/dL (32-36); MEAN CORPUSCULAR VOLUME 80 fL (80-99); MONOCYTES # (AUTO) 0.2 10^3/uL (0.0-1.0); MONOCYTES % (AUTO) 11 % (0-12); NEUTROPHILS % (AUTO) 45 % (42-75); WHITE BLOOD COUNT 2.3 10^3/uL (4.3-11.0)
[2021-03-09 09:11] LABS: PLATELET COUNT 73 10^3/uL (130-400)
[2021-03-09 09:32] LABS: ALBUMIN 3.2 GM/DL (3.2-4.5); BILIRUBIN,TOTAL 0.6 MG/DL (0.1-1.0); CREATININE SERUM 0.72 MG/DL (0.60-1.30); POTASSIUM 4.1 MMOL/L (3.6-5.0); TOTAL PROTEIN 7.1 GM/DL (6.4-8.2)
== END 2021-04-03 | disposition home or self-care (01) ==
LOC: ONC 08:51
PROVIDERS: ATTEND Internal Medicine Hematology & Oncology
DX: Z45.2 Encounter for adjustment and management of vascular access device (principal); C01 Malignant neoplasm of base of tongue; D69.59 Other secondary thrombocytopenia; I10 Essential (primary) hypertension; B19.20 Unspecified viral hepatitis C without hepatic coma; Z92.21 Personal history of antineoplastic chemotherapy
CPT/HCPCS: 36591; 80053; 85025

== ENCOUNTER 2021-07-25 05:29 | Outpatient (CLI) | payer MEDICARE ==
[~2021-07-25] VITALS: Ht 172.7 cm; Wt 83.9 kg
== END 2021-07-25 14:15 | disposition home or self-care (01) ==
LOC: PREOP 05:29
PROVIDERS: ATTEND Surgery
DX: Z01.818 Encounter for other preprocedural examination (principal)

== ENCOUNTER 2021-07-27 12:00 | Day surgery (SDC) | payer MEDICARE ==
[~2021-07-27] VITALS: Ht 172.7 cm; Wt 83.9 kg
[2021-07-27] VITALS (8 sets, daily range): BP systolic 116–156; BP diastolic 68–88
[2021-07-27] MEDS ORDERED: LIDOCAINE/EPI 2% 1:200,00 (XYLOCAINE) 20 ML VIAL ONE (12:06)
--- NOTE | 2021-07-27 12:43 | Progress Note-Pre Operative ---
Pre-Operative Progress Note H&P Reviewed The H&P was reviewed, patient examined and no changes noted. Date Seen by Provider: July 27, 2021 Time Seen by Provider: 12:42 Date H&P Reviewed: July 27, 2021 Time H&P Reviewed: 12:42 Pre-Operative Diagnosis: squamous cell carcinoma of tongue-history LILY DIETRICH DO July 27, 2021 12:43
[2021-07-27] MEDS ORDERED: ceFAZolin 2 GM IV Premixed 50 ML ONE (12:44)
[2021-07-27] MEDS ORDERED: PROPOFOL INJECTION 50 ML IV ONE (13:07)
[2021-07-27] MEDS ORDERED: ceFAZolin 2 GM IV Premixed 50 ML IV ONE (14:00)
--- NOTE | 2021-07-27 14:09 | Discharge Inst-Simple/Standard ---
Discharge Inst-Standard Patient Instructions/Follow Up Plan of Care/Instructions/FU: 2 WEEKS KAUR Activity as Tolerated: Yes Discharge Diet: Regular Diet LILY DIETRICH DO July 27, 2021 14:09
--- NOTE | 2021-07-27 14:10 | Progress Note-Post Operative ---
Post-Operative Progess Note Surgeon (s)/Heating And Cooling Systems Engineer (s) Surgeon LILY DIETRICH DO Heating And Cooling Systems Engineer: NA Pre-Operative Diagnosis squamous cell carcinoma of tongue-history Post-Operative Diagnosis SAME Procedure & Operative Findings Date of Procedure 07/27/21 Procedure Performed/Findings PROCEDURE: Removal of port, COMPLICATIONS: None. INDICATIONS: The patient is a 61 year-old male who had a port previously placed. Patient is ok to have port removed. The patient was explained risk and benefits of the procedure and wished to proceed with procedure. Consent was signed on the chart. PROCEDURE: The patient was taken to the operating suite and was prepped and draped in sterile fashion. A surgical pause was performed. Local anesthetic was infiltrated to the area around the port. A number 15 blade scalpel was used to make an incision. Cautery was used to dissect down to the port which was then grasped and then dissected around. The catheter was removed in its entirety. The port was then able to be dissected out of the pocket and elevated. The wound was then irrigated with copious amounts of irrigation. Hemostasis had been achieved. The subcutaneous tissues were then reapproximated using 3-0 Vicryl. Skin was then closed using Skin Affix placed over the incision. The patient tolerated the procedure well without complication and was taken to recovery room in stable condition. Anesthesia Type MAC C LOCAL Estimated Blood Loss Estimated blood loss (mL): MINIMAL Specimens/Packing Specimens Removed LILY CHEEMA DO July 27, 2021 14:10
[2021-07-27] MEDS ORDERED: LACTATED RINGERS 1,000 ML IV PRN (14:45)
== END 2021-07-27 14:15 ==
LOC: SDC 12:00
PROVIDERS: ATTEND Surgery
DX: C02.9 Malignant neoplasm of tongue, unspecified (principal); L60.1 Onycholysis; Z87.891 Personal history of nicotine dependence
CPT/HCPCS: 87081

== ENCOUNTER 2022-02-24 06:50 | Emergency (ER) | payer MEDICARE ==
[~2022-02-24] VITALS: Ht 172 cm; Wt 83.1 kg
[2022-02-24 07:13] LABS: BASOPHILS # (AUTO) 0.1 10^3/uL (0.0-0.1); BASOPHILS % (AUTO) 1 % (0-10); EOSINOPHILS # (AUTO) 0.2 10^3/uL (0.0-0.3); EOSINOPHILS % (AUTO) 4 % (0-10); HEMATOCRIT 40 % (40-54); HEMOGLOBIN 12.8 g/dL (13.3-17.7); LYMPHOCYTES # (AUTO) 1.3 10^3/uL (1.0-4.0); LYMPHOCYTES % (AUTO) 34 % (12-44); MEAN CORPUSCULAR HEMOGLOBIN 23 pg (25-34); MEAN CORPUSCULAR HGB CONC 32 g/dL (32-36); MEAN CORPUSCULAR VOLUME 70 fL (80-99); MONOCYTES # (AUTO) 0.4 10^3/uL (0.0-1.0); MONOCYTES % (AUTO) 11 % (0-12); NEUTROPHILS # (AUTO) 1.9 10^3/uL (1.8-7.8); NEUTROPHILS % (AUTO) 50 % (42-75); PLATELET COUNT 112 10^3/uL (130-400); WHITE BLOOD COUNT 3.8 10^3/uL (4.3-11.0)
[2022-02-24] MEDS ORDERED: ONDANSETRON 4 MG/2 ML (SDV) Z0FRAN IVP ONE (07:15)
[2022-02-24] MEDS ORDERED: cloNIDine 0.2 MG (CATAPRES) TAB PO ONE (07:15)
[2022-02-24] MEDS ORDERED: fentaNYL INJ 100 MCG/2 ML AMP IVP ONE (07:15)
--- NOTE | 2022-02-24 07:26 | Diagnostic Imaging Report ---
INDICATION: Chest pain. TECHNIQUE: Single view chest 7:12 AM. CORRELATION STUDY: 05/23/2020 FINDINGS: The heart size, mediastinal configuration and pulmonary vascularity are within normal limits. The previously noted malpositioned right-sided chest port catheter has been removed. The lungs are clear with no consolidating infiltrate. There is no significant effusion or pneumothorax. IMPRESSION: 1. Negative for acute abnormality of the chest. Dictated by: Dictated on workstation # [id number]
--- NOTE | 2022-02-24 07:27 | ED Chest Pain ---
General Chief Complaint: Chest Pain Stated Complaint: CHEST PAIN/ INCREASED HEART RATE Nursing Triage Note: Patient has ambulated to ER with cc of chest pain that started about an hour ago. He reports being very anxious. Source: patient, family Exam Limitations: no limitations History of Present Illness Date Seen by Provider: Feb 24, 2022 Time Seen by Provider: 07:00 Initial Comments Patient is a 61-year-old male with history of heavy alcohol use presents with substernal chest pain starting 1 hour prior to to arrival. Pain is moderate to severe radiates to through his back. Associated symptoms shortness of breath and sweats. Pain is not made worse with deep breathing and movement or exertion has not relieved with rest. Patient denies nausea vomiting and abdominal pain/tenderness. No fever cough, sore throat, leg pain or swelling. No history of CAD. Patient is non-smoker. No other acute symptoms or complaints. No medications or therapies prior to ED arrival. Timing/Duration: 1 hour Severity/Quality: moderate Location: other Radiation: other Activities at Onset: other Prior CP/Workup: other Modifying Factors: improves with other Allergies and Home Medications Allergies Coded Allergies: No Known Drug Allergies (Unverified , 07/25/21) Patient Home Medication List Home Medication List Reviewed: No Review of Systems Review of Systems Constitutional: see HPI EENTM: See HPI Respiratory: See HPI Cardiovascular: See HPI Gastrointestinal: See HPI Genitourinary: See HPI Musculoskeletal: see HPI Skin: see HPI Psychiatric/Neurological: See HPI Endocrine: See HPI Hematologic/Lymphatic: See HPI All Other Systems Reviewed Negative Unless Noted: No Past Wbifsqd-[id number]-Qdzxhj Hx Patient Social History Tobacco Use?: No Use of E-Cig and/or Vaping dev: No Substance use?: No Alcohol Use?: Yes Alcohol Frequency: Daily Immunizations Up To Date PED Vaccines UTD: No First/Initial COVID19 Vaccinat: SEPTEMBER 2020 Second COVID19 Vaccination Nabeel: OCT 2020 Seasonal Allergies Seasonal Allergies: Yes (MILD) Past Medical History Surgeries: Yes (BACK-LUMBAR, tongue bx, PEG tube placement, port-a-cath placement) Respiratory: Yes (ASTHMA CHILD) Currently Using CPAP: No Currently Using BIPAP: No Cardiac: Yes Hypertension Neurological: Yes Headaches /Migraines Sexually Transmitted Disease: No HIV/AIDS: No Genitourinary: Yes Prostate Problems Gastrointestinal: Yes (HX HEPATITIS B) Hepatitis Musculoskeletal: Yes (HANDS) Arthritis, Chronic Back Pain Endocrine: No HEENT: Yes (GLASSES) Loss of Vision: Denies Hearing Impairment: Denies Cancer: Yes (stage III SCC of tongue) What Type of Treatment Did You: Chemotherapy, Radiation Psychosocial: Yes Anxiety Integumentary: Yes (VERY DRY SKIN) Blood Disorders: No Adverse Reaction/Blood Tranf: No (HAS HAD BLOOD WITH NO REACTION) Family Medical History Heart Disease Physical Exam Vital Signs Capillary Refill : Height, Weight, BMI Height: '" Weight: lbs. oz. kg; 28.00 BMI Method: General Appearance: No Apparent Distress, WD/WN, Anxious HEENT: PERRL/EOMI, Normal ENT Inspection, Pharynx Normal Neck: Full Range of Motion, Normal Inspection, Non Tender Respiratory: Lungs Clear Cardiovascular: Regular Rate, Rhythm, No Edema, No Murmur Gastrointestinal: Non Tender, Soft Extremity: Non Tender, No Calf Tenderness Neurologic/Psychiatric: Alert, Oriented x3, No Motor/Sensory Deficits, field broomer II- XII Norm as Tested Focused Exam Sepsis Stage: Ruled Out Progress/Results/Core Measures Results/Orders Lab Results Laboratory Tests Test 02/24/22 07:02 Range/Units White Blood Count 3.8 L 4.3-11.0 10^3/uL Red Blood Count 5.67 H 4.30-5.52 10^6/uL Hemoglobin 12.8 L 13.3-17.7 g/dL Hematocrit 40 40-54 % Mean Corpuscular Volume 70 L 80-99 fL Mean Corpuscular Hemoglobin 23 L 25-34 pg Mean Corpuscular Hemoglobin Concent 32 32-36 g/dL Red Cell Distribution Width 19.9 H 10.0-14.5 % Platelet Count 112 L 130-400 10^3/uL Mean Platelet Volume 9.0-12.2 fL Immature Granulocyte % (Auto) 0 % Neutrophils (%) (Auto) 50 42-75 % Lymphocytes (%) (Auto) 34 12-44 % Monocytes (%) (Auto) 11 0-12 % Eosinophils (%) (Auto) 4 0-10 % Basophils (%) (Auto) 1 0-10 % Neutrophils # (Auto) 1.9 1.8-7.8 10^3/uL Lymphocytes # (Auto) 1.3 1.0-4.0 10^3/uL Monocytes # (Auto) 0.4 0.0-1.0 10^3/uL Eosinophils # (Auto) 0.2 0.0-0.3 10^3/uL Basophils # (Auto) 0.1 0.0-0.1 10^3/uL Immature Granulocyte # (Auto) 0.0 0.0-0.1 10^3/uL Percent Immature Platelet Fraction 6.1 0.0-7.6 % My Orders Orders - JESÚS ESPANA DO Cbc With Automated Diff (02/24/22 07:07) Comprehensive Metabolic Panel (02/24/22 07:07) Troponin I Fs (02/24/22 07:07) Chest 1 View Ap/Pa Only (02/24/22 07:07) Ekg Tracing (02/24/22 07:07) Clonidine Tablet (Catapres Tablet) (02/24/22 07:15) Fibrin Degradation Products (02/24/22 07:07) Fentanyl Inj (Sublimaze Injection) (02/24/22 07:15) Ondansetron Injection (Zofran Injectio (02/24/22 07:15) Lipase (02/24/22 07:12) Blood Pressure Mean: 128 Departure Communication (Admissions) EKG: Sinus bradycardia, no acute ST-T wave changes. Chest x-ray: No acute cardiopulmonary changes on preliminary ED review Atypical chest pain radiating to back Departure-Patient Inst. Referrals: NO,LOCAL PHYSICIAN (PCP/Family) Primary Care Physician JESÚS ESPANA DO Feb 24, 2022 07:26
[2022-02-24] MEDS ORDERED: NITROGLYCERIN 0.4 MG SL TABS BTL 25'S SL PRN (07:30)
[2022-02-24 07:36] LABS: ALANINE AMINOTRANSFERASE 13 U/L (0-55); ALBUMIN 4.1 GM/DL (3.2-4.5); ALKALINE PHOSPHATASE 67 U/L (40-136); BILIRUBIN,TOTAL 0.4 MG/DL (0.1-1.0); BUN/CREATININE RATIO 30; CARBON DIOXIDE 22 MMOL/L (21-32); CHLORIDE 106 MMOL/L (98-107); GFR ESTIMATED 111; GLUCOSE 101 MG/DL (70-105); POTASSIUM 4.3 MMOL/L (3.6-5.0); SODIUM 138 MMOL/L (135-145); TOTAL PROTEIN 7.3 GM/DL (6.4-8.2)
[2022-02-24] MEDS ORDERED: LIDOCAINE 2% VISCOUS 15 ML UDC PO ONE (07:45)
[2022-02-24] MEDS ORDERED: ANTACID SUSP 30 ML UDC (MYLANTA) PO ONE (07:45)
[2022-02-24] MEDS ORDERED: FAMOTIDINE 20MG/2ML IV (PEPCID) IVP ONE (07:45)
[2022-02-24] MEDS ORDERED: FAMO-119 PO (09:35)
[2022-02-24 09:41] VITALS: BP 152/71
== END 2022-02-24 09:41 | disposition home or self-care (01) ==
LOC: EDUNIT# 06:50 → ER FS 06:53
DX: R07.2 Precordial pain (principal)
CPT/HCPCS: 36415; 71045; 80053; 83690; 84484; 85025; 85379; 93005